=== PATIENT | male | born 1950 | race Caucasian/White ===

== ENCOUNTER 2020-03-18 12:17 | Day surgery (SDC) | payer MEDICARE ==
[2020-03-18 12:59] VITALS: RESP 16; TEMP 98.2
[2020-03-18 13:04] LABS: Mean Platelet Volume 7.9; Platelet Count 139 k/uL (150-450)
[2020-03-18 13:11] LABS: African American GFR (CKD) >90 (>60 ml/min/1.73 sqM); Non-African American GFR(CKD) 90 (>60 ml/min/1.73 sqM)
[2020-03-18 13:20] LABS: INR 1.1 (<1.2); Prothrombin Time 11.4 sec (9.0-12.0)
[2020-03-18] MEDS: ALBUMIN HUMAN 25% 50 ML in EMPTY BAG 1 BAG IVPB SCH ×4 (13:22→14:17)
[2020-03-18 14:56] VITALS: BP 121/78; PULSE 82
--- NOTE | 2020-03-18 16:14 | US ---
EXAMINATION TYPE: US paracentesis abd w/image DATE OF EXAM: 03/18/2020 COMPARISON: NONE HISTORY: Ascites. PROCEDURE: Maximal barrier technique was utilized. The skin overlying a suitable pocket of fluid was localized with ultrasound and the overlying skin was prepped and draped. Ultrasound was utilized with sterile technique. Lidocaine was used for local anesthesia and a skin marlon made with a scalpel. Catheter was advanced under direct ultrasound guidance into a suitable pocket of fluid and approximately 8 liters of serous fluid were removed. Catheter was withdrawn and hemostasis achieved. There is no immediate complication; the patient is discharged in stable condition. IMPRESSION: STATUS POST ULTRASOUND GUIDED PARACENTESIS FOR PALLIATION OF ASCITES. THIS PROCEDURE WA S PERFORMED BY THE UNDERSIGNED.
[2020-03-18 20:13] LABS: Appearance,BF Clear; Color,BF Yellow; Nucleated Cells, Body Fluid 34 /uL; RBC, Body Fluid 84 /uL
[2020-03-18 20:15] LABS: Mononuclear WBC,Body Fluid 99 %; Polynuclear WBC,Body Fluid 1 %; Total Cells Counted,Body Fluid 100
== END 2020-03-18 14:57 | disposition home or self-care (01) ==
LOC: RADPROMAIN 12:17
PROVIDERS: ATTEND Internal Medicine Gastroenterology
DX: R18.8 Other ascites (principal)
CPT/HCPCS: 89050; 82565; 85049; 85610; 36415; 49083; P9047; 88108; 88305

== ENCOUNTER → 2020-04-04 | Outpatient (CLI) | payer MEDICARE ==
[2020-04-04 23:25] LABS: Basophils # (A) 0.02 X 10*3/uL (0.00-0.10); Basophils % (A) 0.5 %; Eosinophils # (A) 0.18 X 10*3/uL (0.04-0.35); Eosinophils % (A) 4.3 %; HCT 29.4 % (39.6-50.0); HGB 8.9 g/dL (13.0-17.0); Lymphocytes # (A) 0.48 X 10*3/uL (0.90-5.00); Lymphocytes % (A) 11.5 %; MCH 24.3 pg (27.0-32.0); MCHC 30.3 g/dL (32.0-37.0); MCV 80.3 fL (80.0-97.0); Mean Platelet Volume 11.9 fL (9.5-12.2); Monocytes # (A) 0.41 X 10*3/uL (0.20-1.00); Monocytes % (A) 9.8 %; Neutrophils # (A) 3.08 X 10*3/uL (1.80-7.70); Neutrophils % (A) 73.4 %; Platelet Count 146 X 10*3/uL (140-440); RBC 3.66 X 10*6/uL (4.40-5.60); RDW 16.8 % (11.5-14.5); WBC 4.19 X 10*3/uL (4.50-10.00)
[2020-04-05 00:43] LABS: INR 1.05 (0.90-1.11); Partial Thromboplastin Time 29.3 sec (23.5-31.0); Prothrombin Time 11.4 sec (9.9-11.9)
[2020-04-05 04:02] LABS: African American GFR (CKD) 89.2 (60.0-200.0); Anion Gap 9.5 mmol/L (4.00-12.00); Calcium 8.3 mg/dL (8.7-10.3); Carbon Dioxide 23.5 mmol/L (21.6-31.8); Magnesium 1.9 mg/dL (1.5-2.4)
== END | disposition home or self-care (01) ==
LOC: LABWHC1 16:17
DX: Z01.810 Encounter for preprocedural cardiovascular examination (principal)
CPT/HCPCS: 80048; 83735; 85025; 85610; 85730; 36415; U0003

== ENCOUNTER → 2020-05-09 | Outpatient (CLI) | payer MEDICARE ==
[2020-05-10 01:31] LABS: African American GFR (CKD) 106.4 (60.0-200.0); Anion Gap 7.8 mmol/L (4.00-12.00); BUN/Creat Ratio 22.5 Ratio (12.00-20.00); Calcium 8.7 mg/dL (8.7-10.3); Carbon Dioxide 24.2 mmol/L (21.6-31.8); Non-African American GFR(CKD) 91.8 (60.0-200.0); Potassium 3.6 mmol/L (3.5-5.5)
== END | disposition home or self-care (01) ==
LOC: LABWHC1 14:39
PROVIDERS: ATTEND Internal Medicine
DX: N17.9 Acute kidney failure, unspecified (principal); Z79.899 Other long term (current) drug therapy
CPT/HCPCS: 36415; 80048

== ENCOUNTER 2020-06-06 08:54 | Emergency (ER) | payer MEDICARE ==
[2020-06-06] MEDS ORDERED: MORPHINE SULFATE 4 MG/ML SYRINGE IV STA (09:19)
[2020-06-06 09:50] LABS: Anisocytosis Slight; Basophils % (A) 0 %; Eosinophils % (A) 1 %; HCT 30.1 % (39.0-53.0); Hypochromasia Moderate; Lymphocytes # (A) 0.3 k/uL (1.0-4.8); Lymphocytes % (A) 4 %; MCH 25.3 pg (25.0-35.0); MCHC 33.1 g/dL (31.0-37.0); MCV 76.6 fL (80.0-100.0); Mean Platelet Volume 7.8; Microcytosis Slight; Monocytes # (A) 0.5 k/uL (0-1.0); Monocytes % (A) 6 %; Neutrophils # (A) 7.5 k/uL (1.3-7.7); Neutrophils % (A) 89 %; Platelet Count 176 k/uL (150-450); Poikilocytosis Slight; RBC 3.93 m/uL (4.30-5.90); WBC 8.4 k/uL (3.8-10.6)
[2020-06-06 10:02] LABS: Albumin 2.7 g/dL (3.5-5.0); Calcium 7.9 mg/dL (8.4-10.2); Potassium 3.6 mmol/L (3.5-5.1); Total Bilirubin 2.8 mg/dL (0.2-1.3)
--- NOTE | 2020-06-06 11:26 | CT ---
EXAMINATION TYPE: CT abdomen pelvis w con DATE OF EXAM: 06/06/2020 COMPARISON: NONE HISTORY: 70-year-old male leaking hernia, abdominal pain, TECHNIQUE: Contiguous axial scanning of the abdomen and pelvis following administration of 100 ml Iso melchor 300 IV contrast. Delayed images through the kidneys and coronal/sagittal reconstructions perform ed. CT DLP: 1120.4 mGycm Automated exposure control for dose reduction was used. FINDINGS: Heart normal size without pericardial effusion. Bands of atelectasis at the posterior lower lobes and additional dependent atelectasis. Gastroesophageal and lower esophageal varices suggested. Shrunken nodular liver. Underlying lesion within the mid hepatic dome measuring 6.3 x 2.8 cm difficul t to exclude. Possible second lesion segment 4A measuring 1.8 cm. There is recanalization of the umbilical vein. Portal venous system appears patent. Very large abdominopelvic ascites. Mild splenomegaly of 14.0 cm. Posterior splenule. Gallbladder, left kidney, and pancreas show no gross adenopathy. 1.1 cm cortical hypodensity mid right kidney too small for accurate CT characterization, probable sma ll cortical cysts. Nonobstructive 2 mm right renal calculus, coronal image 79. Possible diffuse gastric fold thickening. No dilated small bowel or free air. There seems to be mild to moderate fold thickening of the right side of the colon, for example, refer to coronal image 59. P roximal to mid sigmoid diverticulosis. Mural-based irregularity at the level of the rectum, likely r ectal varices draining to a large IMV. Small 8 mm umbilical hernia defect but with moderate fluid collected in the subcutaneous adipose laye r measuring 8.3 cm wide and 8.1 cm craniocaudal. Bladder partially urine distended. Prostate gland measures 3.9 cm wide. Bones: Left hip dynamic screw fixation. Superior endplate compression deformities L1 and L2. These ar e age-indeterminate but suspected chronic and can be correlated clinically. Hypertrophic facet arthro santino mid to lower lumbar spine. Grade 1 anterolisthesis L4-L5. IVC filter. IMPRESSION: 1. CIRRHOTIC LIVER. UNABLE TO EXCLUDE UNDERLYING LESIONS AT THE MID HEPATIC DOME MEASURING 6.3 X 2.8 CM AND A SECOND LESION WITHIN SEGMENT 4A MEASURING 1.8 CM. HCC SHOULD BE EXCLUDED. 2. SEQUELA OF PORTAL VENOUS HYPERTENSION WITH RECANALIZED UMBILICAL VEIN, LOWER ESOPHAGEAL VARICES, S EVERE ABDOMINOPELVIC ASCITES, AND MILD SPLENOMEGALY. 3. PRONOUNCED MUCOSAL IRREGULARITY WITHIN THE RECTUM SUSPECTED TO BE ON THE BASIS OF RECTAL VARICES ( FROM PORTAL VENOUS HYPERTENSION) RATHER THAN NEOPLASM. 4. MODERATE CIRCUMFERENTIAL THICKENING OF THE RIGHT SIDE OF THE COLON COULD BE DUE TO HYPOALBUMINEMIA OR A NONSPECIFIC COLITIS. 5. SMALL 8 MM UMBILICAL WALL DEFECT WITH A MODERATE SIZED 8.3 X 8.1 CM HERNIA SAC CONTAINING ASCITES FLUID.
--- NOTE | 2020-06-06 11:36 | ED ---
Abdominal Pain HPI - General Chief Complaint: Abdominal Pain Stated Complaint: abd pain/hernia Source: EMS Mode of arrival: EMS Limitations: no limitations - History of Present Illness Initial Comments: 70-year-old male presents to the emergency department from home with leaking from his umbilical hernia. Patient has a history of end-stage liver disease, ascites with recent paracentesis on June 01. Patient reports that he receives these as needed. On the they did remove 8 L of fluid. Patient does have a chronic umbilical hernia. States that earlier today the site began leaking and therefore he came into the emergency room for evaluation. Patient also reports to abdominal pain. Denies any nausea, vomiting, fevers or chills. No shortness of breath. Denies any changes in his bowel habits. No changes in his urination. No other alleviating, Perceptin or modifying factors - Related Data Home Medications Medication Instructions Recorded Confirmed Ciprofloxacin HCl [Cipro] 500 mg PO DAILY 03/14/20 06/06/20 Furosemide [Lasix] 20 mg PO BID 03/14/20 06/06/20 Spironolactone [Aldactone] 25 mg PO DAILY 03/14/20 06/06/20 Magnesium(Unknown) 1 tab PO DAILY 06/06/20 06/06/20 Midodrine HCl [ProAmatine] 10 mg PO TID PRN 06/06/20 06/06/20 Propranolol [Inderal] 10 mg PO BID 06/06/20 06/06/20 Vitamin D3(Uknown) 1 tab PO DAILY 06/06/20 06/06/20 traZODone HCL 100 mg PO HS PRN 06/06/20 06/06/20 Allergies Allergy/AdvReac Type Severity Reaction Status Date / Time No Known Allergies Allergy Verified 06/06/20 12:26 Review of Systems ROS Statement: Those systems with pertinent positive or pertinent negative responses have been documented in the HPI. ROS Other: All systems not noted in ROS Statement are negative. Past Medical History Past Medical History: Coronary Artery Disease (CAD), Diabetes Mellitus, Hypertension, Liver Disease, Osteoarthritis (OA) Additional Past Medical History / Comment(s): irregular heart beat in past due to Popanolol-per pt, alcoholic cirrhosis History of Any Multi-Drug Resistant Organisms: None Reported Past Surgical History: Orthopedic Surgery, Tonsillectomy Additional Past Surgical History / Comment(s): multiple paracentesis Past Anesthesia/Blood Transfusion Reactions: No Reported Reaction Past Psychological History: Anxiety, Depression Smoking Status: Former smoker Past Alcohol Use History: None Reported Past Drug Use History: Marijuana - Past Family History Father Family Medical History: No Reported History General Exam Limitations: no limitations Course Vital Signs 06/06/20 06/06/20 06/06/20 08:57 12:24 13:50 Temperature 97.8 F 97.9 F 98.0 F Pulse Rate 98 96 99 Respiratory 16 18 18 Rate Blood Pressure 116/81 106/72 102/70 O2 Sat by Pulse 96 94 L 95 Oximetry Medical Decision Making - Medical Decision Making The patient's placed into room 17. There are history and physical exam is performed. IV is established patient is given 4 of morphine for pain control. Laboratory studies are conducted. Patient is provided a urine sample. CT of abdomen and pelvis was performed which demonstrates cirrhotic liver, sequelae of portal hypertension, severe ascites. Umbilical wall defect with moderate sized 8.3 x 8.1 similar hernia sac containing ascites fluid. There isn't shower over the patient's umbilical hernia. No active bleeding or drainage at this time. I did discuss the diagnosis, differential treatment options. Recommend admission for GI and surgery consultation. Patient refused and states he rather go home at this time. I will give him follow up information for Dr. Whelan's office as he does request that he wants to switch GI doctors. I also given follow-up information for Dr. Child's office. Adaptic placed over the patient's vocal hernia and the patient's abdomen is rapid with a Eder bandage. He is instructed to follow up with his GI doctor for paracentesis as needed. Return to the ED for any new or worsening symptoms. Pt agreed to this and was discharged home in stable condition - Lab Data Result diagrams: 06/06/20 09:21 06/06/20 09:21 Lab Results 06/06/20 06/06/20 06/06/20 Range/Units 09: 09:21 12:27 WBC 8.4 (3.8-10.6) k/uL RBC 3.93 L (4.30-5.90) m/uL Hgb 10.0 L (13.0-17.5) gm/dL Hct 30.1 L (39.0-53.0) % MCV 76.6 L (80.0-100.0) fL MCH 25.3 (25.0-35.0) pg MCHC 33.1 (31.0-37.0) g/dL RDW 18.0 H (11.5-15.5) % Plt Count 176 (150-450) k/uL MPV 7.8 Neutrophils % 89 % Lymphocytes % 4 % Monocytes % 6 % Eosinophils % 1 % Basophils % 0 % Neutrophils # 7.5 (1.3-7.7) k/uL Lymphocytes # 0.3 L (1.0-4.8) k/uL Monocytes # 0.5 (0-1.0) k/uL Eosinophils # 0.0 (0-0.7) k/uL Basophils # 0.0 (0-0.2) k/uL Hypochromasia Moderate Poikilocytosis Slight Anisocytosis Slight Microcytosis Slight Sodium 134 L (137-145) mmol/L Potassium 3.6 (3.5-5.1) mmol/L Chloride 97 L (98-107) mmol/L Carbon Dioxide 29 (22-30) mmol/L Anion Gap 8 mmol/L BUN 28 H (9-20) mg/dL Creatinine 1.12 (0.66-1.25) mg/dL Est GFR (CKD-EPI)AfAm 78 (>60 ml/min/1.73 sqM) Est GFR (CKD-EPI)NonAf 67 (>60 ml/min/1.73 sqM) Glucose 103 H (74-99) mg/dL Calcium 7.9 L (8.4-10.2) mg/dL Total Bilirubin 2.8 H (0.2-1.3) mg/dL AST 35 (17-59) U/L ALT 16 (4-49) U/L Alkaline Phosphatase 132 H (38-126) U/L Total Protein 6.0 L (6.3-8.2) g/dL Albumin 2.7 L (3.5-5.0) g/dL Lipase 68 (23-300) U/L Urine Color Yellow Urine Appearance Clear (Clear) Urine pH 5.5 (5.0-8.0) Ur Specific Newborn 1.040 H (1.001-1.035) Urine Protein Trace H (Negative) Urine Glucose (UA) Negative (Negative) Urine Ketones Negative (Negative) Urine Blood Negative (Negative) Urine Nitrite Negative (Negative) Urine Bilirubin Negative (Negative) Urine Urobilinogen <2.0 (<2.0) mg/dL Ur Leukocyte Esterase Negative (Negative) - EKG Data EKG Comments: EKG demonstrates sinus rhythm with PACs. Rate of 97. WY interval 154. QRS 86. QTC of 474. Low voltage. No acute ST segment elevations. Disposition Clinical Impression: Ascites, Umbilical hernia Disposition: HOME SELF-CARE Condition: Stable Instructions (If sedation given, give patient instructions): Umbilical Hernia (ED) Additional Instructions: Please follow up with the GI doctor for paracentesis. Follow up with the surgeon for further options regarding your hernia. Return to the ED for any new or worsening symptoms. Keep a non stick bandage on your belly button and wrap your abdomen with the eder bandage to keep pressure off the hernia. Is patient prescribed a controlled substance at d/c from ED?: No Referrals: Nonstaff,Physician [Primary Care Provider] - 1-2 days Vero Canales MD [STAFF PHYSICIAN] - 1-2 days Dawson Lutz MD [STAFF PHYSICIAN] - 1-2 days Time of Disposition: 13:10
[2020-06-06] MEDS ORDERED: MORPHINE SULFATE 4 MG/ML SYRINGE IVP STA (12:17)
[2020-06-06 12:26] VITALS: RESP 18
[2020-06-06 12:58] LABS: Appearance,Urine Clear (Clear); Bilirubin,Urine Negative (Negative); Blood,Urine Negative (Negative); Color,Urine Yellow; Glucose,Urine (UA) Negative (Negative); Ketones,Urine Negative (Negative); Leukocyte Esterase,Urine Negative (Negative); Nitrite,Urine Negative (Negative); PH, Urine 5.5 (5.0-8.0); Protein,Urine Trace (Negative); Urobilinogen,Urine <2.0 mg/dL (<2.0)
[2020-06-06 13:53] VITALS: BP 102/70; PULSE 99; TEMP 98
== END 2020-06-06 13:52 | disposition home or self-care (01) ==
LOC: EC 08:54
DX: K42.9 Umbilical hernia without obstruction or gangrene (principal); R18.8 Other ascites; I25.10 Atherosclerotic heart disease of native coronary artery without angina pectoris; I10 Essential (primary) hypertension; E11.9 Type 2 diabetes mellitus without complications; F41.9 Anxiety disorder, unspecified; F32.9 Major depressive disorder, single episode, unspecified; Z79.899 Other long term (current) drug therapy; Z87.891 Personal history of nicotine dependence
CPT/HCPCS: 36415; 93005; 80053; 83690; 85025; 81003; 74177; 99285; 96374; 96376; J2270; Q9967

== ENCOUNTER 2021-07-02 14:22 | Inpatient (IN) | payer MEDICARE ==
[2021-07-02] MEDS ORDERED: ONDANSETRON 4 MG/2 ML VIAL IVP STA (15:36)
[2021-07-02] MEDS ORDERED: MORPHINE SULFATE 4 MG/ML SYRINGE IV STA (15:36)
[2021-07-02] MEDS ORDERED: SODIUM CHLORIDE 0.9% 500 ML 500 ML IV STA ×2 (15:37→17:08)
[2021-07-02] MEDS ORDERED: diphenhydrAMINE 50 MG/ML 1 ML VIAL IVP STA (15:51)
[2021-07-02 15:53] LABS: Basophils # (A) 0.1 k/uL (0-0.2); Basophils % (A) 1 %; Eosinophils # (A) 0.2 k/uL (0-0.7); Eosinophils % (A) 3 %; HCT 40.3 % (39.0-53.0); HGB 12.4 gm/dL (13.0-17.5); Lymphocytes # (A) 1.1 k/uL (1.0-4.8); Lymphocytes % (A) 21 %; MCH 26.9 pg (25.0-35.0); MCHC 30.6 g/dL (31.0-37.0); MCV 87.8 fL (80.0-100.0); Monocytes # (A) 0.4 k/uL (0-1.0); Monocytes % (A) 7 %; Neutrophils # (A) 3.5 k/uL (1.3-7.7); Neutrophils % (A) 66 %; Platelet Count 114 k/uL (150-450); RBC 4.59 m/uL (4.30-5.90); RDW 14.9 % (11.5-15.5); WBC 5.3 k/uL (3.8-10.6)
[2021-07-02 15:55] LABS: Appearance,Urine Clear (Clear); Bilirubin,Urine Negative (Negative); Blood,Urine Negative (Negative); Color,Urine Yellow; Glucose,Urine (UA) Negative (Negative); Ketones,Urine Negative (Negative); Leukocyte Esterase,Urine Negative (Negative); Nitrite,Urine Negative (Negative); PH, Urine 7.5 (5.0-8.0); Protein,Urine Negative (Negative); Specific Gravity,Urine 1.006 (1.001-1.035); Urobilinogen,Urine <2.0 mg/dL (<2.0)
[2021-07-02 16:04] LABS: INR 1.1 (<1.2); Partial Thromboplastin Time 26.1 sec (22.0-30.0); Prothrombin Time 12.2 sec (9.0-12.0)
[2021-07-02 16:07] LABS: ALT 15 U/L (4-49); AST 28 U/L (17-59); African American GFR (CKD) >90 (>60 ml/min/1.73 sqM); Albumin 3.7 g/dL (3.5-5.0); Alkaline Phosphatase 107 U/L (38-126); Amylase 129 U/L (30-110); Anion Gap 9 mmol/L; Blood Urea Nitrogen 8 mg/dL (9-20); Calcium 8.8 mg/dL (8.4-10.2); Carbon Dioxide 19 mmol/L (22-30); Chloride 109 mmol/L (98-107); Glucose 89 mg/dL (74-99); Lipase 126 U/L (23-300); Non-African American GFR(CKD) >90 (>60 ml/min/1.73 sqM); Potassium 3.6 mmol/L (3.5-5.1); Sodium 137 mmol/L (137-145); Total Bilirubin 2.3 mg/dL (0.2-1.3); Total Protein 7.2 g/dL (6.3-8.2)
--- NOTE | 2021-07-02 16:18 | ED ---
General Adult HPI - General Chief complaint: Abdominal Pain Stated complaint: Abd Pain Time Seen by Provider: 07/02/21 15:02 Source: patient Mode of arrival: wheelchair Limitations: no limitations - History of Present Illness Initial comments: This 71-year-old male with past medical history of liver cirrhosis, coronary artery disease and hypertension presents emergency department with abdominal pain. Patient states he was seen at [facility] emergency department yesterday and was diagnosed with a small bowel obstruction. Patient states they wanted to tr ansfer him, however he declined and went home instead. He describes his abdominal pain as aching and is all over in his abdomen- not localized to one specific spot. Patient states his abdominal pain has been worsening over the last week. Patient states his last bowel movement was yesterday which seemed to be regular for him. Patient states they performed a CT scan of the abdomen yesterday and diagnosed with small bowel obstruction. Patient denies any fever, chest pain, increased shortness of breath, nausea, vomiting, change in bowel or bladder, lightheadedness, dizziness, headache, change in vision. Patient states appetite has been a little bit decreased over the last couple of days. - Related Data Home Medications Medication Instructions Recorded Confirmed traZODone HCL 100 mg PO HS PRN 06/06/20 07/02/21 Allergies Allergy/AdvReac Type Severity Reaction Status Date / Time No Known Allergies Allergy Verified 07/02/21 17:03 Review of Systems ROS Statement: Those systems with pertinent positive or pertinent negative responses have been documented in the HPI. ROS Other: All systems not noted in ROS Statement are negative. Past Medical History Past Medical History: Coronary Artery Disease (CAD), Diabetes Mellitus, Hypertension, Liver Disease, Osteoarthritis (OA) Additional Past Medical History / Comment(s): irregular heart beat in past due to Popanolol-per pt, alcoholic cirrhosis History of Any Multi-Drug Resistant Organisms: None Reported Past Surgical History: Orthopedic Surgery, Tonsillectomy Additional Past Surgical History / Comment(s): multiple paracentesis Past Anesthesia/Blood Transfusion Reactions: No Reported Reaction Past Psychological History: Anxiety, Depression Smoking Status: Former smoker Past Alcohol Use History: None Reported Past Drug Use History: Marijuana - Past Family History Father Family Medical History: No Reported History General Exam Limitations: no limitations General appearance: alert, in no apparent distress Head exam: Present: atraumatic, normocephalic, normal inspection Eye exam: Present: normal appearance, PERRL, EOMI. Absent: scleral icterus, conjunctival injection, periorbital swelling ENT exam: Present: normal exam, mucous membranes moist Neck exam: Present: normal inspection. Absent: tenderness, meningismus, lymphadenopathy Respiratory exam: Present: normal lung sounds bilaterally, other (Respirations 21- patient states this is how he normally breathes). Absent: respiratory distress, wheezes, rales, rhonchi, stridor, chest wall tenderness, decreased breath sounds Cardiovascular Exam: Present: regular rate, irregular rhythm (rate jumping from 75-140's), normal heart sounds. Absent: systolic murmur, diastolic murmur, rubs, gallop, clicks GI/Abdominal exam: Present: soft, tenderness (Generalized abdominal discomfort to palpation in all 4 quadrants), normal bowel sounds. Absent: distended, guarding, rebound, rigid Extremities exam: Present: normal inspection, full ROM, normal capillary refill. Absent: tenderness, pedal edema, joint swelling, calf tenderness Back exam: Present: normal inspection, full ROM. Absent: CVA tenderness (R), CVA tenderness (L), paraspinal tenderness, vertebral tenderness Neurological exam: Present: alert, oriented X3, CN II-XII intact Psychiatric exam: Present: normal affect, normal mood Skin exam: Present: warm, dry, intact, normal color. Absent: rash Course Vital Signs 07/02/21 07/02/21 07/02/21 14:39 15:33 17:03 Temperature 98 F Pulse Rate 75 67 112 H Respiratory 24 18 18 Rate Blood Pressure 114/60 112/85 125/91 O2 Sat by Pulse 99 100 99 Oximetry 07/02/21 17:48 Temperature Pulse Rate 129 H Respiratory 18 Rate Blood Pressure 108/93 O2 Sat by Pulse 95 Oximetry EKG Findings - EKG Comments: EKG Findings:: EKG impression: Abnormal rhythm. Ventricular rate 99 bpm. QRS duration 86. QT/QTc 346/402. Interpreted by my attending, Medical Decision Making - Medical Decision Making This 71-year-old male presents emergency department with abdominal pain 1 week. Patient was seen at [facility] emergency department yesterday and was diagnosed with small bowel obstruction or they wanted to transfer him, however he did refuse. I did receive CT scan of abdomen results which did interpret small bowel obstruction. Patient states his abdominal pain has been increasing today so he presented here. Patient with 2.8 plasma lactic acid. Patient given 1 L normal saline bolus and was placed nothing by mouth and started on maintenance fluids. Spoke with who agreed to admit patient to her services with GI consul marysol. Patient placed on metoprolol 25 mg twice a day for abnormal heart rhythm- patient states he believes he may have been diagnosed with A. fib in his past but is unsure. Patient agreed to be admitted to the hospital for further workup, evaluation and treatment. Case discussed in detail with my attending, . - Lab Data Result diagrams: 07/02/21 15:49 07/02/21 15:49 Lab Results 07/02/21 07/02/21 07/02/21 Range/Units 15:40 15:40 15:40 WBC (3.8-10.6) k/uL RBC (4.30-5.90) m/uL Hgb (13.0-17.5) gm/dL Hct (39.0-53.0) % MCV (80.0-100.0) fL MCH (25.0-35.0) pg MCHC (31.0-37.0) g/dL RDW (11.5-15.5) % Plt Count (150-450) k/uL MPV Neutrophils % % Lymphocytes % % Monocytes % % Eosinophils % % Basophils % % Neutrophils # (1.3-7.7) k/uL Lymphocytes # (1.0-4.8) k/uL Monocytes # (0-1.0) k/uL Eosinophils # (0-0.7) k/uL Basophils # (0-0.2) k/uL PT 12.2 H (9.0-12.0) sec INR 1.1 (<1.2) APTT 26.1 (22.0-30.0) sec Sodium (137-145) mmol/L Potassium (3.5-5.1) mmol/L Chloride (98-107) mmol/L Carbon Dioxide (22-30) mmol/L Anion Gap mmol/L BUN (9-20) mg/dL Creatinine (0.66-1.25) mg/dL Est GFR (CKD-EPI)AfAm (>60 ml/min/1.73 sqM) Est GFR (CKD-EPI)NonAf (>60 ml/min/1.73 sqM) Glucose (74-99) mg/dL Plasma Lactic Acid Dirk 2.8 H* (0.7-2.0) mmol/L Calcium (8.4-10.2) mg/dL Total Bilirubin (0.2-1.3) mg/dL AST (17-59) U/L ALT (4-49) U/L Alkaline Phosphatase (38-126) U/L Troponin I (0.000-0.034) ng/mL Total Protein (6.3-8.2) g/dL Albumin (3.5-5.0) g/dL Amylase (30-110) U/L Lipase (23-300) U/L Urine Color Yellow Urine Appearance Clear (Clear) Urine pH 7.5 (5.0-8.0) Ur Specific [place] 1.006 (1.001-1.035) Urine Protein Negative (Negative) Urine Glucose (UA) Negative (Negative) Urine Ketones Negative (Negative) Urine Blood Negative (Negative) Urine Nitrite Negative (Negative) Urine Bilirubin Negative (Negative) Urine Urobilinogen <2.0 (<2.0) mg/dL Ur Leukocyte Esterase Negative (Negative) 07/02/21 07/02/21 07/02/21 Range/Units 15:49 15:49 16:10 WBC 5.3 (3.8-10.6) k/uL RBC 4.59 (4.30-5.90) m/uL Hgb 12.4 L (13.0-17.5) gm/dL Hct 40.3 (39.0-53.0) % MCV 87.8 (80.0-100.0) fL MCH 26.9 (25.0-35.0) pg MCHC 30.6 L (31.0-37.0) g/dL RDW 14.9 (11.5-15.5) % Plt Count 114 L (150-450) k/uL MPV 8.0 Neutrophils % 66 % Lymphocytes % 21 % Monocytes % 7 % Eosinophils % 3 % Basophils % 1 % Neutrophils # 3.5 (1.3-7.7) k/uL Lymphocytes # 1.1 (1.0-4.8) k/uL Monocytes # 0.4 (0-1.0) k/uL Eosinophils # 0.2 (0-0.7) k/uL Basophils # 0.1 (0-0.2) k/uL PT (9.0-12.0) sec INR (<1.2) APTT (22.0-30.0) sec Sodium 137 (137-145) mmol/L Potassium 3.6 (3.5-5.1) mmol/L Chloride 109 H (98-107) mmol/L Carbon Dioxide 19 L (22-30) mmol/L Anion Gap 9 mmol/L BUN 8 L (9-20) mg/dL Creatinine 0.68 (0.66-1.25) mg/dL Est GFR (CKD-EPI)AfAm >90 (>60 ml/min/1.73 sqM) Est GFR (CKD-EPI)NonAf >90 (>60 ml/min/1.73 sqM) Glucose 89 (74-99) mg/dL Plasma Lactic Acid Dirk (0.7-2.0) mmol/L Calcium 8.8 (8.4-10.2) mg/dL Total Bilirubin 2.3 H (0.2-1.3) mg/dL AST 28 (17-59) U/L ALT 15 (4-49) U/L Alkaline Phosphatase 107 (38-126) U/L Troponin I 0.012 (0.000-0.034) ng/mL Total Protein 7.2 (6.3-8.2) g/dL Albumin 3.7 (3.5-5.0) g/dL Amylase 129 H (30-110) U/L Lipase 126 (23-300) U/L Urine Color Urine Appearance (Clear) Urine pH (5.0-8.0) Ur Specific [place] (1.001-1.035) Urine Protein (Negative) Urine Glucose (UA) (Negative) Urine Ketones (Negative) Urine Blood (Negative) Urine Nitrite (Negative) Urine Bilirubin (Negative) Urine Urobilinogen (<2.0) mg/dL Ur Leukocyte Esterase (Negative) Disposition Clinical Impression: Small bowel obstruction, Abdominal pain Disposition: ADMITTED IP TO THIS [facility] Condition: Serious Time of Disposition: 17:21
--- NOTE | 2021-07-02 16:38 | XR ---
EXAMINATION TYPE: XR abdomen 2V DATE OF EXAM: 07/02/2021 COMPARISON: NONE HISTORY: Abdominal pain TECHNIQUE: 3 views FINDINGS: There is no sign of intestinal obstruction or pneumoperitoneum. Fecal pattern is normal. Th ere is inferior vena cava filter. There is left hip nailing. IMPRESSION: Nonacute abdomen.
[2021-07-02] MEDS ORDERED: ONDANSETRON 4 MG/2 ML VIAL IVP PRN (17:03)
[2021-07-02] MEDS ORDERED: NALOXONE 0.4 MG/ML 1 ML VIAL IV PRN (17:03)
[2021-07-02] MEDS ORDERED: METOPROLOL SUCCINATE (ER) 25 MG TAB.ER.24H PO STA (17:08)
[2021-07-02] MEDS ORDERED: DILTIAZEM 5 MG/ML 5 ML VIAL IVP STA (17:36)
[2021-07-02] MEDS: MORPHINE SULFATE 4 MG/ML SYRINGE IV PRN ×3 (17:37→21:15)
[2021-07-02] MEDS ORDERED: traZODone HCL 100 MG TAB PO PRN (17:37)
[2021-07-02] MEDS: SODIUM CHLORIDE 0.9% 1,000 ML IV SCH (17:41)
[2021-07-02] MEDS ORDERED: DILTIAZEM 125 MG in SODIUM CHLORIDE 0.9% 100 ML IV SCH (17:45)
--- NOTE | 2021-07-02 18:13 | XR ---
EXAMINATION TYPE: XR chest 1V portable DATE OF EXAM: 07/02/2021 COMPARISON: NONE HISTORY: Short of breath TECHNIQUE: Single view FINDINGS: Heart is normal. Lungs are clear of infiltrate. No heart failure seen. There is deformity o f the left humerus consistent with old healed humeral neck fracture. IMPRESSION: No active cardiopulmonary disease.
--- NOTE | 2021-07-02 18:45 | HP ---
HISTORY AND PHYSICAL CHIEF COMPLAINT: Abdominal pain. HISTORY OF PRESENT ILLNESS: This 71-year-old gentleman with a past mellitus history of cirrhosis of the liver and TIPS in the outpatient setting, being followed at [facility] physicians, apparently had abdominal pain for the last one week which was increasing in intensity for the last two days, mainly felt in the upper part and right upper quadrant. Patient went to [facility] ER yesterday and CT scans apparently showed small bowel obstruction. Because of lack of improvement, the patient came to [facility] and was admitted for further evaluation and treatment. There is no history of any fever, rigors or chills at this time. The patient also had atrial fibrillation with fast ventricular rate. PAST MEDICAL HISTORY: History of cirrhosis of the liver, history of TIPS, umbilical hernia repair, history of diabetes mellitus, CAD, hypertension. MEDICATIONS: Home medications are trazodone. ALLERGIES: NONE. FAMILY HISTORY: No history of heart disease or strokes in the family. SOCIAL HISTORY: Previous history of alcohol. Previous history of smoking. REVIEW OF SYSTEMS: Fourteen-point review of systems negative except as mentioned earlier. PHYSICAL EXAMINATION: Pulse is 112, blood pressure 124/90, respiration 18. Oral mucosa moist. NECK: No jugular venous distention. CARDIOVASCULAR: S1, S2 muffled. RESPIRATION: Breath sounds diminished at the bases. No rhonchi. No crackles. ABDOMEN: Soft. Mild diffuse tenderness in the right upper quadrant. No mass palpable. LEGS: No edema. No swelling. NERVOUS SYSTEM: No focal deficit. LABS: WBC 5.3, hemoglobin 12.4. Rest of the labs are noted. ASSESSMENT: 1. Right upper quadrant abdominal pain. Rule out cholelithiasis or cholecystitis. 2. Elevated plasma lactic acid. 3. Cirrhosis of the liver and TIPS. 4. History of diabetes mellitus, type 2. 5. Possible small bowel obstruction on the recent CT scan. 6. Coronary artery disease. 7. Hypertension. 8. Atrial fibrillation. RECOMMENDATIONS AND DISCUSSION: In this 71-year-old gentleman who presented with multiple complex medical issues, we will monitor the patient closely. Otherwise, I would recommend Cardizem drip, surgical and cardiology consultations. Guarded prognosis because of multiple complex medical issues. Further recommendations to follow. See orders for details. MMODL / IJN: [id number] /
[2021-07-02] MEDS ORDERED: METOPROLOL SUCCINATE (ER) 25 MG TAB.ER.24H PO SCH (21:00)
[2021-07-02] MEDS: PANTOPRAZOLE 40 MG/10 ML VIAL IVP SCH (21:15)
[2021-07-02] MEDS: HEPARIN SODIUM,PORCINE/PF 5,000 UNIT/0.5 ML SYRINGE SQ SCH (21:15)
[2021-07-03] MEDS: MORPHINE SULFATE 4 MG/ML SYRINGE IV PRN ×2 (01:59→06:23)
[2021-07-03] MEDS: SODIUM CHLORIDE 0.9% 1,000 ML IV SCH (02:02)
[2021-07-03] MEDS ORDERED: METOPROLOL SUCCINATE (ER) 25 MG TAB.ER.24H PO SCH (06:00)
[2021-07-03 07:12] LABS: African American GFR (CKD) >90 (>60 ml/min/1.73 sqM); Anion Gap 5 mmol/L; Blood Urea Nitrogen 10 mg/dL (9-20); Carbon Dioxide 20 mmol/L (22-30); Chloride 114 mmol/L (98-107); Glucose 71 mg/dL (74-99); Non-African American GFR(CKD) >90 (>60 ml/min/1.73 sqM); Sodium 139 mmol/L (137-145)
[2021-07-03 07:18] LABS: Potassium 4.2 mmol/L (3.5-5.1)
[2021-07-03 07:19] LABS: Basophils % (A) 1 %; Eosinophils # (A) 0.1 k/uL (0-0.7); Eosinophils % (A) 3 %; HCT 35.7 % (39.0-53.0); HGB 11.1 gm/dL (13.0-17.5); Hypochromasia Moderate; Lymphocytes # (A) 0.9 k/uL (1.0-4.8); Lymphocytes % (A) 22 %; MCV 90.5 fL (80.0-100.0); Mean Platelet Volume 7.9; Monocytes # (A) 0.3 k/uL (0-1.0); Monocytes % (A) 7 %; Neutrophils # (A) 2.5 k/uL (1.3-7.7); Neutrophils % (A) 62 %; Platelet Count 108 k/uL (150-450); RBC 3.95 m/uL (4.30-5.90)
--- NOTE | 2021-07-03 08:24 | P.CRDCN ---
History of Present Illness History of present illness: HISTORY OF PRESENTING ILLNESS This is a pleasant 71-year-old male past medical history significant for liver cirrhosis s/p prior TIPS, Hernia, Prior alcohol use. He does not follow regularly with a mechanical product design engineer. We have been asked to see in consultation for atrial fibrillation. Patient presents emergency department the patient worsening abdominal pain. Patient initially presented to the outside emergency department and was diagnosed with small bowel obstruction, as recommended patient be transferred however he declined and went home. He presents with worsening aching upper and lower abdominal pain. He continues to have abdominal pain but relief with morphine. He endorses last 3 bowel movements on 07/01. Not passing flatus currently. He denies chest pain, palpitations, lightheadedness, dizziness, shortness of breath. He denies any nausea or vomiting. He denies any history of coronary artery disease, hypertension, diabetes, dyslipidemia. He currently smokes one cigarette per week. Denies any alcohol use. Stopped alcohol use 3 years ago. Patient was known to be and possible atrial fibrillation was started on Cardizem 5mg/hr, stopped about 3-4 hours later patient was in sinus mechanism. DIAGNOSTICS EKG reveals atrial fibrillation, ectopic atrial rhythm not excluded with heart rate [address] history of abnormalities. Telemetry tracings indicate sinus mechanism with heart rate 60s Chest xray no acute cardiopulmonary process KUB x-ray with no acute abdominal process Laboratory reviewed, WBC 4.0, hemoglobin 11.1, platelets 108, sodium 139, potassium 4.2, BUN 10, serum crit 0.6, troponin negative, liver enzymes within normal limits, amylase 129, lipase 126 Current home medications include trazodone 100 mg PRN REVIEW OF SYSTEMS At the time of my exam: CONSTITUTIONAL: Denies fever or chills. CARDIOVASCULAR: Denies chest pain, shortness of breath, orthopnea, PND or palpitations. RESPIRATORY: Denies cough. GASTROINTESTINAL: + abdominal pain, Iron diarrhea, constipation, nausea or vomiting. MUSCULOSKELETAL: Denies myalgias. NEUROLOGIC: Denies numbness, tingling, headacbe or weakness. ENDOCRINE: Denies fatigue, weight change, polydipsia or polyurina. GENITOURINARY: Denies burning, hematuria or urgency with micturation. HEMATOLOGIC: Denies history of anemia or bleeding. PHYSICAL EXAMINATION Blood pressure 116/71, heart rate 67, afebrile, oxygen saturations 98% on room air CONSTITUTIONAL: No apparent distress. HEENT: Head is normocephalic. Pupils are equal, round. Sclerae anicteric. Mucous membranes of the mouth are moist. No JVD. No carotid bruit. CHEST EXAMINATION: Lungs are clear to auscultation. No chest wall tenderness is noted on palpation or with deep breathing. HEART EXAMINATION: Regular rate and rhythm. S1, S2 heard. No murmurs, gallops or rub. ABDOMEN: Soft, nontender. Positive bowel sounds. EXTREMITIES: 2+ peripheral pulses, no lower extremity edema and no calf tenderness. NEUROLOGIC EXAMINATION: Patient is awake, alert and oriented x3. ASSESSMENT Abdominal pain Possible small bowel obstruction Paroxysmal atrial fibrillation [id number] score 1 History liver cirrhosis status post prior TIPS History of alcohol use Chronic nicotine dependence PLAN Obtain 2D echocardiogram and doppler study to assess cardiac structure and function. Continue metoprolol succinate Check TSH Hold off on anticoagulation at this time, will touch base with urology Further recommendations based on clinical course Nurse practitioner note has been reviewed by physician. Signing provider agrees with the documented findings, assessment, and plan of care. Past Medical History Past Medical History: Coronary Artery Disease (CAD), Hypertension, Liver Disease, Osteoarthritis (OA) Additional Past Medical History / Comment(s): irregular heart beat in past due to Popanolol-per pt, alcoholic cirrhosis History of Any Multi-Drug Resistant Organisms: None Reported Past Surgical History: Orthopedic Surgery, Tonsillectomy Additional Past Surgical History / Comment(s): multiple paracentesis,left hip fractures repair, right 2 and 3 digit repair Past Anesthesia/Blood Transfusion Reactions: No Reported Reaction Smoking Status: Former smoker - Past Family History Father Family Medical History: No Reported History Sister(s) Family Medical History: Diabetes Mellitus Brother(s) Family Medical History: CVA/TIA, Diabetes Mellitus Medications and Allergies Home Medications Medication Instructions Recorded Confirmed Type traZODone HCL 100 mg PO HS PRN 06/06/20 07/02/21 History Allergies Allergy/AdvReac Type Severity Reaction Status Date / Time No Known Allergies Allergy Verified 07/02/21 17:03 Physical Exam Vitals: Vital Signs Temp Pulse Pulse Resp BP BP Pulse Ox 07/03/21 02:00 66 17 07/03/21 00:00 97.9 F 66 17 115/70 96 07/02/21 20:00 98.3 F 65 18 113/49 100 07/02/21 19:12 98.3 F 93 18 109/62 100 07/02/21 18:26 89 18 108/84 96 07/02/21 17:48 129 H 18 108/93 95 07/02/21 17:03 112 H 18 125/91 99 07/02/21 15:33 67 18 112/85 100 07/02/21 14:39 98 F 75 24 114/60 99 Intake and Output 07/02/21 07/02/21 07/03/21 14:59 22:59 06:59 Intake Total 20.583 Output Total 500 Balance 20.583 -500 Intake: Intake, IV Titration 20.583 Amount Diltiazem 125 mg In 20.583 Sodium Chloride 0.9% 100 ml @ 5 MG/HR 5 mls/hr IV .Q24H [facility] Rx#:[id number] Output: Urine 500 Other: Voiding Method Urinal Urinal Weight 58.967 kg 58.967 kg Results 07/03/21 06:47 07/03/21 06:47 Cardiac Enzymes 07/02/21 07/02/21 Range/Units 15:49 16:10 AST 28 (17-59) U/L Troponin I 0.012 (0.000-0.034) ng/mL Coagulation 07/02/21 Range/Units 15:40 PT 12.2 H (9.0-12.0) sec APTT 26.1 (22.0-30.0) sec CBC 07/02/21 Range/Units 15:49 WBC 5.3 (3.8-10.6) k/uL RBC 4.59 (4.30-5.90) m/uL Hgb 12.4 L (13.0-17.5) gm/dL Hct 40.3 (39.0-53.0) % Plt Count 114 L (150-450) k/uL Comprehensive Metabolic Panel 07/02/21 Range/Units 15:49 Sodium 137 (137-145) mmol/L Potassium 3.6 (3.5-5.1) mmol/L Chloride 109 H (98-107) mmol/L Carbon Dioxide 19 L (22-30) mmol/L BUN 8 L (9-20) mg/dL Creatinine 0.68 (0.66-1.25) mg/dL Glucose 89 (74-99) mg/dL Calcium 8.8 (8.4-10.2) mg/dL AST 28 (17-59) U/L ALT 15 (4-49) U/L Alkaline Phosphatase 107 (38-126) U/L Total Protein 7.2 (6.3-8.2) g/dL Albumin 3.7 (3.5-5.0) g/dL Current Medications Generic Name Dose Route Start Last Admin Trade Name Freq PRN Reason Stop Dose Admin Heparin Sodium (Porcine) 5,000 unit 07/02/21 21:00 07/02/21 21:15 Heparin Sodium,Porcine/Pf 5,000 Unit/0.5 Ml Syringe SQ 5,000 unit Q12HR JUDITH Administration Sodium Chloride 1,000 mls @ 130 mls/hr 07/02/21 17:15 07/03/21 02:02 Saline 0.9% IV Not Given .[id number] JUDITH Diltiazem HCl 125 mg/ Sodium 125 mls @ 5 mls/hr 07/02/21 17:45 07/02/21 22:00 Chloride IV 0 mg/hr .Q24H JUDITH 0 mls/hr Infusion 5 MG/HR Metoprolol Succinate 25 mg 07/03/21 06:00 07/03/21 06:23 Metoprolol Succinate (Er) 25 Mg Tab.Er.24h PO 25 mg 0600,1800 JUDITH Administration Morphine Sulfate 4 mg 07/02/21 17:03 07/03/21 06:23 Morphine Sulfate 4 Mg/Ml Syringe IV 4 mg Q4HR PRN Administration Severe Pain Naloxone HCl 0.2 mg 07/02/21 17:03 Naloxone 0.4 Mg/Ml 1 Ml Vial IV Q2M PRN Opioid Reversal Ondansetron HCl 4 mg 07/02/21 17:03 Ondansetron 4 Mg/2 Ml Vial IVP Q8HR PRN Nausea And Vomiting Pantoprazole Sodium 40 mg 07/02/21 21:00 07/02/21 21:15 Pantoprazole 40 Mg/10 Ml Vial IVP 40 mg BID JUDITH Administration Trazodone HCl 100 mg 07/02/21 17:37 Trazodone Hcl 100 Mg Tab PO HS PRN Insomnia Intake and Output 07/02/21 07/02/21 07/03/21 14:59 22:59 06:59 Intake Total 20.583 Output Total 500 Balance 20.583 -500 Intake: Intake, IV Titration 20.583 Amount Diltiazem 125 mg In 20.583 Sodium Chloride 0.9% 100 ml @ 5 MG/HR 5 mls/hr IV .Q24H [facility] Rx#:[id number] Output: Urine 500 Other: Voiding Method Urinal Urinal Weight 58.967 kg 58.967 kg Patient Weight 07/03/21 06:59 Weight 58.967 kg 07/02/21 15:49 07/02/21 15:49
[2021-07-03 09:40] VITALS: TEMP 98.2
[2021-07-03] MEDS: PANTOPRAZOLE 40 MG/10 ML VIAL IVP SCH (10:01)
--- NOTE | 2021-07-03 10:28 | P.GSCN ---
History of Present Illness Consult date: 07/03/21 History of present illness: The patient is a 71-year-old man who presented to the ER with abdominal pain. He's been having abdominal pain for about the last week. Saturday he went to the ER, [facility] in [place] and was worked up with a CT. They were concerned about a possible small bowel obstruction wanted to transfer him however he declined and went home. By that time he was feeling better. He had several bowel movements on Saturday. Then he began having pain again which was stabbing in the right lower quadrant and he came into the emergency department and a x-ray was done he was admitted. Pain is improved with morphine. He has some nausea with the pain but no vomiting. No abdominal distention. Patient is hungry now and wants something to eat. Patient has known cirrhosis and underwent an umbilical hernia repair with TIPS procedure. A CT performed here in 2020 showed an umbilical hernia with extensive varices so the hernia repair had to have been performed after that. He's also complained of generalized itching in his primary care started him on some sort of topical cream. Other than the hernia repair he said no previous abdominal surgeries. No history of obstruction in the past Review of Systems All systems: negative Past Medical History Past Medical History: Coronary Artery Disease (CAD), Hypertension, Liver Disease, Osteoarthritis (OA) Additional Past Medical History / Comment(s): irregular heart beat in past due to Popanolol-per pt, alcoholic cirrhosis History of Any Multi-Drug Resistant Organisms: None Reported Past Surgical History: Orthopedic Surgery, Tonsillectomy Additional Past Surgical History / Comment(s): multiple paracentesis,left hip fractures repair, right 2 and 3 digit repair Past Anesthesia/Blood Transfusion Reactions: No Reported Reaction Smoking Status: Former smoker - Past Family History Father Family Medical History: No Reported History Sister(s) Family Medical History: Diabetes Mellitus Brother(s) Family Medical History: CVA/TIA, Diabetes Mellitus Medications and Allergies Home Medications Medication Instructions Recorded Confirmed Type traZODone HCL 100 mg PO HS PRN 06/06/20 07/02/21 History Allergies Allergy/AdvReac Type Severity Reaction Status Date / Time No Known Allergies Allergy Verified 07/02/21 17:03 Surgical - Exam Osteopathic Statement: *. No significant issues noted on an osteopathic structural exam other than those noted in the History and Physical/Consult. Vital Signs Temp Pulse Resp BP Pulse Ox 98 F 75 24 114/60 99 07/02/21 14:39 07/02/21 14:39 07/02/21 14:39 07/02/21 14:39 07/02/21 14:39 - General well developed, well nourished, no distress - Eyes normal ocular movement - Neck trachea midline, no lymphadectomy - Respiratory normal expansion, normal respiratory effort - Cardiovascular Rhythm: irregularly irregular - Abdomen Abdomen: soft, non tender, bowel sounds, surgical scars (Scarring in the area of the umbilicus without evidence of obvious caput medusa) - Integumentary no abnormal pigmentation Results - Labs 07/03/21 06:47 07/03/21 06:47 Abnormal Lab Results - Last 24 Hours (Table) 07/02/21 07/02/21 07/02/21 Range/Units 15:40 15:40 15:49 RBC (4.30-5.90) m/uL Hgb 12.4 L (13.0-17.5) gm/dL Hct (39.0-53.0) % MCHC 30.6 L (31.0-37.0) g/dL Plt Count 114 L (150-450) k/uL Lymphocytes # (1.0-4.8) k/uL PT 12.2 H (9.0-12.0) sec Chloride (98-107) mmol/L Carbon Dioxide (22-30) mmol/L BUN (9-20) mg/dL Glucose (74-99) mg/dL Plasma Lactic Acid Dirk 2.8 H* (0.7-2.0) mmol/L Calcium (8.4-10.2) mg/dL Total Bilirubin (0.2-1.3) mg/dL Amylase (30-110) U/L TSH (0.465-4.680) mIU/L 07/02/21 07/03/21 07/03/21 Range/Units 15:49 06:47 06:47 RBC 3.95 L (4.30-5.90) m/uL Hgb 11.1 L (13.0-17.5) gm/dL Hct 35.7 L (39.0-53.0) % MCHC (31.0-37.0) g/dL Plt Count 108 L (150-450) k/uL Lymphocytes # 0.9 L (1.0-4.8) k/uL PT (9.0-12.0) sec Chloride 109 H 114 H (98-107) mmol/L Carbon Dioxide 19 L 20 L (22-30) mmol/L BUN 8 L (9-20) mg/dL Glucose 71 L (74-99) mg/dL Plasma Lactic Acid Dirk (0.7-2.0) mmol/L Calcium 8.0 L (8.4-10.2) mg/dL Total Bilirubin 2.3 H (0.2-1.3) mg/dL Amylase 129 H (30-110) U/L TSH (0.465-4.680) mIU/L 07/03/21 Range/Units 06:47 RBC (4.30-5.90) m/uL Hgb (13.0-17.5) gm/dL Hct (39.0-53.0) % MCHC (31.0-37.0) g/dL Plt Count (150-450) k/uL Lymphocytes # (1.0-4.8) k/uL PT (9.0-12.0) sec Chloride (98-107) mmol/L Carbon Dioxide (22-30) mmol/L BUN (9-20) mg/dL Glucose (74-99) mg/dL Plasma Lactic Acid Dirk (0.7-2.0) mmol/L Calcium (8.4-10.2) mg/dL Total Bilirubin (0.2-1.3) mg/dL Amylase (30-110) U/L TSH 0.016 L (0.465-4.680) mIU/L Diabetes panel 07/02/21 07/03/21 Range/Units 15:49 06:47 Sodium 137 139 (137-145) mmol/L Potassium 3.6 4.2 (3.5-5.1) mmol/L Chloride 109 H 114 H (98-107) mmol/L Carbon Dioxide 19 L 20 L (22-30) mmol/L BUN 8 L 10 (9-20) mg/dL Creatinine 0.68 0.69 (0.66-1.25) mg/dL Glucose 89 71 L (74-99) mg/dL Calcium 8.8 8.0 L (8.4-10.2) mg/dL AST 28 (17-59) U/L ALT 15 (4-49) U/L Alkaline Phosphatase 107 (38-126) U/L Total Protein 7.2 (6.3-8.2) g/dL Albumin 3.7 (3.5-5.0) g/dL Thyroid panel 07/03/21 Range/Units 06:47 TSH 0.016 L (0.465-4.680) mIU/L Calcium panel 07/02/21 07/03/21 Range/Units 15:49 06:47 Calcium 8.8 8.0 L (8.4-10.2) mg/dL Albumin 3.7 (3.5-5.0) g/dL Pituitary panel 07/02/21 07/03/21 07/03/21 Range/Units 15:49 06:47 06:47 Sodium 137 139 (137-145) mmol/L Potassium 3.6 4.2 (3.5-5.1) mmol/L Chloride 109 H 114 H (98-107) mmol/L Carbon Dioxide 19 L 20 L (22-30) mmol/L BUN 8 L 10 (9-20) mg/dL Creatinine 0.68 0.69 (0.66-1.25) mg/dL Glucose 89 71 L (74-99) mg/dL Calcium 8.8 8.0 L (8.4-10.2) mg/dL TSH 0.016 L (0.465-4.680) mIU/L Adrenal panel 07/02/21 07/03/21 Range/Units 15:49 06:47 Sodium 137 139 (137-145) mmol/L Potassium 3.6 4.2 (3.5-5.1) mmol/L Chloride 109 H 114 H (98-107) mmol/L Carbon Dioxide 19 L 20 L (22-30) mmol/L BUN 8 L 10 (9-20) mg/dL Creatinine 0.68 0.69 (0.66-1.25) mg/dL Glucose 89 71 L (74-99) mg/dL Calcium 8.8 8.0 L (8.4-10.2) mg/dL Total Bilirubin 2.3 H (0.2-1.3) mg/dL AST 28 (17-59) U/L ALT 15 (4-49) U/L Alkaline Phosphatase 107 (38-126) U/L Total Protein 7.2 (6.3-8.2) g/dL Albumin 3.7 (3.5-5.0) g/dL - Imaging Abdominal x-ray: report reviewed, image reviewed Assessment and Plan (1) Cirrhosis Current Visit: Yes Status: Acute Code(s): K74.60 - UNSPECIFIED CIRRHOSIS OF LIVER SNOMED Code(s): 44408758 (2) Abdominal pain Current Visit: Yes Status: Acute Code(s): R10.9 - UNSPECIFIED ABDOMINAL PAIN SNOMED Code(s): 26117921 Plan: The patient has air and stool in the large and small intestine with no obvious obstruction seen on plain abdominal x-ray. We'll start him on a diet. If this causes worsening pain repeat computed tomography scan with oral contrast. If he does develop a obstruction which would require surgery he would need to be transferred due to his history of cirrhosis and varices seen on previous imaging
[2021-07-03 11:33] LABS: INR 1.1 (<1.2); Partial Thromboplastin Time 27.8 sec (22.0-30.0); Prothrombin Time 11.8 sec (9.0-12.0)
--- NOTE | 2021-07-03 11:43 | CA ---
Transthoracic Echo Report Name: Chaparro Mota Age: 71 Gender: M : 1950 Exam Date: 07/03/2021 08:13 Exam Location: [place] [facility] Ht (in): 69 Wt (lb): 130 Ordering Physician: Goyo Rosales MD Attending/Referring Phys: Barrel Rifler Hook Riya Arnett RDCS Procedure CPT: Indications: afib Cardiac Hx: Technical Quality: Fair Contrast 1: Total Dose (mL): Contrast 2: Total Dose (mL): MEASUREMENTS (Male / Female) Normal Values 2D ECHO LV Diastolic Diameter PLAX 4.3 cm 4.2 - 5.9 / 3.9 - 5.3 cm LV Systolic Diameter PLAX 3.1 cm IVS Diastolic Thickness 1.1 cm 0.6 - 1.0 / 0.6 - 0.9 cm LVPW Diastolic Thickness 1.0 cm 0.6 - 1.0 / 0.6 - 0.9 cm LV Relative Wall Thickness 0.5 RV Internal Dim ED PLAX 3.0 cm LA Systolic Diameter LX 3.6 cm 3.0 - 4.0 / 2.7 - 3.8 cm LA Volume 72.1 cm??? 18 - 58 / 22 - 52 cm??? M-MODE Aortic Root Diameter MM 3.5 cm MV E Point Septal Separation 0.6 cm AV Cusp Separation MM 2.1 cm DOPPLER AV Peak Velocity 160.1 cm/s AV Peak Gradient 10.3 mmHg MV Area PHT 3.1 cm??? Mitral E Point Velocity 142.4 cm/s Mitral A Point Velocity 88.5 cm/s Mitral E to A Ratio 1.6 MV Deceleration Time 245.6 ms MV E' Velocity 9.9 cm/s Mitral E to MV E' Ratio 14.4 TR Peak Velocity 280.8 cm/s TR Peak Gradient 31.5 mmHg Right Ventricular Systolic Press 35.0 mmHg FINDINGS Left Ventricle Left ventricular ejection fraction is estimated at 60-65%. Normal Left ventricular size, wall thickness, systolic function with no obvious regional wall motion abnormalities. Normal Left ventricular diastolic filling pattern. Mildly increased septal wall thickness. Right Ventricle Normal right ventricular size and function. Right Atrium Normal right atrial size. Left Atrium Moderately increased left atrial volume. No evidence for an atrial septal defect. Mitral Valve Mitral valve thickened. Mild mitral annular calcification. [id number] mitral regurgitation. Aortic Valve Diffuse thickening (sclerosis) of the aortic valve cusps without reduced excursion. Tricuspid Valve Mild tricuspid regurgitation. Pulmonic Valve Pulmonic valve not well visualized. Pericardium Normal pericardium. Aorta Normal size aortic root and proximal ascending aorta. CONCLUSIONS Normal LV systolic function Moderate left atrial enlargement Mild to moderate mitral regurgitation Previewed by: Dr. Manuel Canales MD (Electronically Signed) Final Date: 03 Jul 2021 11:42
[2021-07-03 12:52] LABS: T4, Free (Free Thyroxine) 2.95 ng/dL (0.78-2.19)
[2021-07-03] MEDS: HEPARIN SODIUM,PORCINE/PF 5,000 UNIT/0.5 ML SYRINGE SQ SCH (15:26)
[2021-07-03 16:23] VITALS: BP 123/78; PULSE 73; RESP 20
--- NOTE | 2021-07-04 10:26 | P.DS ---
Providers Date of admission: 07/02/21 16:45 Expected date of discharge: 07/03/21 Attending physician: Alyssia Jordan MD Consults: 07/02/21 17:05 Consult Physician Routine Consulting Provider: Iva Willams Consult Reason/Comments: Small bowel obstruction, abdominal pain Do you want consulting provider notified?: Yes 07/02/21 17:36 Consult Physician Routine Consulting Provider: Rosaura Lin Consult Reason/Comments: afib Do you want consulting provider notified?: Yes Primary care physician: Physician Nonstaff Hospital Course: Final diagnosis Right upper quadrant abdominal pain, rule out cholelithiasis or cholecystitis Elevated plasma lactic acid Cirrhosis of the liver and TIPS History of diabetes mellitus, type II Possible small bowel obstruction on recent CT at [place] Urinary artery disease Hypertension Atrial fibrillation Discharge disposition Patient is being discharged in a stable condition with guarded prognosis to home. Patient will follow-up with Dr. Laura Angeles in the outpatient setting upon discharge. Patient is to follow-up with cardiology as well and patient does have a GI specialist out of [facility] and instructed him to follow-up as well in the outpatient setting. Recommend patient to continue with clear liquid diet and advance slowly as tolerated. Patient will need outpatient follow-up with primary care provider for repeat TSH and free T4. Total time taken is greater than 35 minutes. Hospital course This is a 71-year-old male who was recently admitted with abdominal pain that had been progressively getting worse and more intense over the last 2 days in the upper right quadrant and apparently had gone to an outside ER at [place] with a computed tomography scan showing small bowel obstruction and was being closely monitored. Patient was evaluated by cardiology along with general surgery and no plans for surgical intervention at this time and recommend starting clear liquid diet and monitoring for tolerance his abdominal pain improved. Cardiology recommends holding on anticoagulation at this time and will follow-up in the outpatient setting in 1 week. Patient does have a GI specialist in the outpatient setting through [facility] and encourage the patient to follow-up with them and if requiring surgery would need tertiary treatment center for surgical interventions given his extensive history of c irrhosis. Patient was started on metoprolol by cardiology and recommended follow-up in one week as he does not have a air tube releaser. Currently no reports of chest pain, shortness of breath, or palpitations. Patient is afebrile. No reports of nausea or vomiting and patient is tolerating diet. Patient will be discharged home today. Guarded prognosis On exam vital signs are stable. Cardio S1, S2 are muffled. Respiratory system shows diminished breath sounds at the bases with no wheezing or rhonchi noted. Abdomen is soft and nontender. Nervous system shows no focal deficits. Please refer to medication reconciliation sheet for a list of medications. The impression and plan of care has been dictated by Sharron Jade, Nurse Practitioner as directed. Dr. Bobby MD I have performed a history and examination and MDM of this patient, discussed the same with the dictator, and agree with the dictator's assessment and plan as written ,documented as a scribe. Based on total visit time, I have performed more than 50% of the visit. Patient Condition at Discharge: Fair Plan - Discharge Summary Discharge Rx Participant: Yes New Discharge Prescriptions: New Metoprolol Succinate (ER) [Toprol XL] 25 mg PO 0600,1800 30 Days #60 tab Pantoprazole Sodium [Protonix] 40 mg PO DAILY #30 tab Continue traZODone HCL 100 mg PO HS PRN PRN Reason: Insomnia Discharge Medication List traZODone HCL 100 mg PO HS PRN 06/06/20 [History] Metoprolol Succinate (ER) [Toprol XL] 25 mg PO 0600,1800 30 Days #60 tab 07/03/21 [Rx] Pantoprazole Sodium [Protonix] 40 mg PO DAILY #30 tab 07/03/21 [Rx] Follow up Appointment(s)/Referral(s): Jasbir Lester MD [STAFF PHYSICIAN] - 1 Week Nonstaff,Physician [Primary Care Provider] - 1-2 days Patient Instructions/Handouts: Cirrhosis (GEN), Abdominal Pain (GEN) Activity/Diet/Wound Care/Special Instructions: Activity Limited until follow-up Follow-up with primary care provider on discharge Follow-up with GI outpatient Continue on clear liquid diet and slowly advance as tolerated Continue taking medications as prescribed Follow-up with cardiology in 1-2 weeks Discharge Disposition: HOME SELF-CARE
== END 2021-07-03 16:36 | disposition home or self-care (01) | DRG 390 ==
LOC: EC 14:22 → 5NMEDONC 16:45 → 3SCARD 17:48
PROVIDERS: ADMIT Internal Medicine; ATTEND Internal Medicine
DX: K56.609 Unspecified intestinal obstruction, unspecified as to partial versus complete obstruction (principal); K70.30 Alcoholic cirrhosis of liver without ascites; E11.9 Type 2 diabetes mellitus without complications; I48.0 Paroxysmal atrial fibrillation; I10 Essential (primary) hypertension; I25.10 Atherosclerotic heart disease of native coronary artery without angina pectoris; L29.9 Pruritus, unspecified; M19.90 Unspecified osteoarthritis, unspecified site; F17.210 Nicotine dependence, cigarettes, uncomplicated; Z90.89 Acquired absence of other organs; Z87.19 Personal history of other diseases of the digestive system; Z87.81 Personal history of (healed) traumatic fracture; Z86.59 Personal history of other mental and behavioral disorders; Z98.890 Other specified postprocedural states; Z82.3 Family history of stroke; Z83.3 Family history of diabetes mellitus
CPT/HCPCS: 36415; 71045; 74019; 80048; 80053; 81003; 82140; 82150; 83605; 83690; 84439; 84443; 84484; 85025; 85610; 85730; 93005; 93306; 96361; 96374; 96375; 99285

== ENCOUNTER 2021-10-25 16:52 | Emergency (ER) | payer MEDICARE ==
[2021-10-25 17:16] VITALS: TEMP 98
[2021-10-25] MEDS ORDERED: HYDROmorphone 0.5 MG/0.5 ML SYRINGE IVP STA ×2 (19:27→21:33)
[2021-10-25] MEDS: KETOROLAC 15 MG/ML 1 ML VIAL IVP STA ×2 (19:45→19:49)
[2021-10-25 19:54] VITALS: RESP 16
[2021-10-25 20:00] LABS: Basophils % (A) 1 %; Eosinophils # (A) 0.1 k/uL (0-0.7); Eosinophils % (A) 2 %; HCT 41.5 % (39.0-53.0); HGB 13.3 gm/dL (13.0-17.5); Lymphocytes # (A) 0.8 k/uL (1.0-4.8); Lymphocytes % (A) 15 %; MCH 29.9 pg (25.0-35.0); MCHC 32.1 g/dL (31.0-37.0); MCV 93.1 fL (80.0-100.0); Mean Platelet Volume 8.2; Monocytes # (A) 0.3 k/uL (0-1.0); Monocytes % (A) 7 %; Neutrophils # (A) 3.9 k/uL (1.3-7.7); Neutrophils % (A) 74 %; Platelet Count 114 k/uL (150-450); RBC 4.46 m/uL (4.30-5.90); RDW 15.8 % (11.5-15.5); WBC 5.2 k/uL (3.8-10.6)
[2021-10-25 20:13] LABS: Albumin 3.7 g/dL (3.5-5.0); C Reactive Protein 0.7 mg/dL (<1.0); Potassium 3.9 mmol/L (3.5-5.1); Total Bilirubin 1.9 mg/dL (0.2-1.3); Total Protein 7.1 g/dL (6.3-8.2)
--- NOTE | 2021-10-25 20:23 | XR ---
EXAMINATION TYPE: XR Hip RT and AP Pelvis DATE OF EXAM: 10/25/2021 COMPARISON: NONE HISTORY: Groin pain TECHNIQUE: 3 views FINDINGS: The pelvic ring is intact. The proximal right femur and hip joint appear intact. No evidenc e of hip fracture. There is left hip surgery from old intertrochanteric fracture of the femur. The sa croiliac joints are intact. IMPRESSION: No acute abnormality of the pelvis and right hip.
[2021-10-25 20:47] LABS: Erythrocyte Sedimentation Rate 6 mm/hr (0-15)
--- NOTE | 2021-10-25 20:47 | ED ---
Abdominal Pain HPI - General Chief Complaint: Abdominal Pain Stated Complaint: groin pain Time Seen by Provider: 10/25/21 19:06 Source: patient, RN notes reviewed Mode of arrival: ambulatory Limitations: no limitations - History of Present Illness Initial Comments: This is a 71-year-old male who presents to the emergency department for right groin pain. Patient states that this began 2 weeks ago. He is unsure if it is any worse, but states that it is not getting any better. He has pain to the touch and when he tries to walk. Patient is tearful in the examination room. Feels like the pain may be going into his testicles. Denies any fevers, chills, nausea, or vomiting. Denies any fevers, chills, sore throat, cough, dyspnea, chest pain, palpitations, nausea, vomiting, diarrhea, back pain, or headaches. MD Complaint: abdominal pain, other (Right groin pain) Onset/Timin -: week(s) Consistency: constant - Related Data Home Medications Medication Instructions Recorded Confirmed traZODone HCL 100 mg PO HS PRN 06/06/20 07/02/21 Previous Rx's Medication Instructions Recorded Metoprolol Succinate (ER) [Toprol 25 mg PO 0600,1800 30 Days #60 tab 07/03/21 XL] Pantoprazole Sodium [Protonix] 40 mg PO DAILY #30 tab 07/03/21 HYDROcodone/APAP 5-325MG [[place] 1 tab PO Q6HR PRN 3 Days #12 tab 10/25/21 5-325] Allergies Allergy/AdvReac Type Severity Reaction Status Date / Time No Known Allergies Allergy Verified 10/25/21 17:16 Review of Systems ROS Statement: Those systems with pertinent positive or pertinent negative responses have been documented in the HPI. ROS Other: All systems not noted in ROS Statement are negative. Past Medical History Past Medical History: Coronary Artery Disease (CAD), Hypertension, Liver Disease, Osteoarthritis (OA) Additional Past Medical History / Comment(s): irregular heart beat in past due to Popanolol-per pt, alcoholic cirrhosis History of Any Multi-Drug Resistant Organisms: None Reported Past Surgical History: Orthopedic Surgery, Tonsillectomy Additional Past Surgical History / Comment(s): multiple paracentesis,left hip fractures repair, right 2 and 3 digit repair Past Anesthesia/Blood Transfusion Reactions: No Reported Reaction Past Psychological History: Anxiety, Depression Smoking Status: Current every day smoker Past Alcohol Use History: None Reported Past Drug Use History: Marijuana - Past Family History Father Family Medical History: No Reported History Sister(s) Family Medical History: Diabetes Mellitus Brother(s) Family Medical History: CVA/TIA, Diabetes Mellitus General Exam Limitations: no limitations General appearance: alert, in distress Head exam: Present: atraumatic, normocephalic, normal inspection Respiratory exam: Present: normal lung sounds bilaterally. Absent: respiratory distress, wheezes, rales, rhonchi, stridor Cardiovascular Exam: Present: regular rate, normal rhythm, normal heart sounds. Absent: systolic murmur, diastolic murmur, rubs, gallop, clicks GI/Abdominal exam: Present: soft, normal bowel sounds. Absent: distended, tenderness, guarding, rebound, rigid exam: Present: normal inspection, testicular tenderness. Absent: urethral discharge External exam: Present: normal external exam Expanded exam: Cremasteric Reflex Present: Left, Right Extremities exam: Present: other (Tender to palpation over the right greater trochanter.) Neurological exam: Present: alert, oriented X3, CN II-XII intact Psychiatric exam: Present: normal affect, normal mood Skin exam: Present: warm, dry, intact, normal color. Absent: rash Course Vital Signs 10/25/21 10/25/21 10/25/21 17:13 19:54 23:55 Temperature 98 F Pulse Rate 76 61 Respiratory 20 16 16 Rate Blood Pressure 102/58 134/79 111/98 O2 Sat by Pulse 99 98 Oximetry Medical Decision Making - Medical Decision Making This is a 71-year-old male who presents to the emergency department for right groin pain. Lab work was nonactionable. X-ray of the right hip and pelvis as well as a computed tomography scan of the abdomen and pelvis were obtained, all of which revealed no explanation for the patient's symptoms. Ultrasound of the groin and scrotum revealed bilateral hydroceles, right greater than left. It is possible that this is the cause of the patient's pain, however this does not rule out other contributing factors. Patient given information for follow-up with urology to discuss the hydroceles. Also advised elevating the scrotum, alternating with ibuprofen and Tylenol, taking warm baths with Epsom salts, and wearing supportive undergarments. Patient was given 3 day course of [place], as his pain has not been adequately managed at home. Advised to use this sparingly when his pain is the most severe. Also discussed applying warm compresses to see if that offers any additional relief. Return precautions reviewed in depth, the patient is instructed to return to the emergency department with any new, worsening, or concerning symptoms. Patient verbalized understanding. This case was discussed in detail with the attending ED physician. Presentation, findings, and treatment plan discussed in detail as well. - Lab Data Result diagrams: 10/25/21 19:54 10/25/21 19:54 Lab Results 10/25/21 10/25/21 10/25/21 Range/Units 19:54 19:54 21:28 WBC 5.2 (3.8-10.6) k/uL RBC 4.46 (4.30-5.90) m/uL Hgb 13.3 (13.0-17.5) gm/dL Hct 41.5 (39.0-53.0) % MCV 93.1 (80.0-100.0) fL MCH 29.9 (25.0-35.0) pg MCHC 32.1 (31.0-37.0) g/dL RDW 15.8 H (11.5-15.5) % Plt Count 114 L (150-450) k/uL MPV 8.2 Neutrophils % 74 % Lymphocytes % 15 % Monocytes % 7 % Eosinophils % 2 % Basophils % 1 % Neutrophils # 3.9 (1.3-7.7) k/uL Lymphocytes # 0.8 L (1.0-4.8) k/uL Monocytes # 0.3 (0-1.0) k/uL Eosinophils # 0.1 (0-0.7) k/uL Basophils # 0.0 (0-0.2) k/uL ESR 6 (0-15) mm/hr Sodium 139 (137-145) mmol/L Potassium 3.9 (3.5-5.1) mmol/L Chloride 106 (98-107) mmol/L Carbon Dioxide 20 L (22-30) mmol/L Anion Gap 13 mmol/L BUN 10 (9-20) mg/dL Creatinine 0.99 (0.66-1.25) mg/dL Est GFR (CKD-EPI)AfAm 89 (>60 ml/min/1.73 sqM) Est GFR (CKD-EPI)NonAf 77 (>60 ml/min/1.73 sqM) Glucose 104 H (74-99) mg/dL Calcium 9.0 (8.4-10.2) mg/dL Total Bilirubin 1.9 H (0.2-1.3) mg/dL AST 31 (17-59) U/L ALT 11 (4-49) U/L Alkaline Phosphatase 70 (38-126) U/L C-Reactive Protein 0.7 (<1.0) mg/dL Total Protein 7.1 (6.3-8.2) g/dL Albumin 3.7 (3.5-5.0) g/dL Urine Color Yellow Urine Appearance Clear (Clear) Urine pH 6.5 (5.0-8.0) Ur Specific [place] 1.021 (1.001-1.035) Urine Protein Negative (Negative) Urine Glucose (UA) Negative (Negative) Urine Ketones Negative (Negative) Urine Blood Negative (Negative) Urine Nitrite Negative (Negative) Urine Bilirubin Negative (Negative) Urine Urobilinogen <2.0 (<2.0) mg/dL Ur Leukocyte Esterase Negative (Negative) - Radiology Data Radiology results: report reviewed, image reviewed Disposition Clinical Impression: Hydrocele, bilateral Disposition: HOME SELF-CARE Instructions (If sedation given, give patient instructions): Hydrocele (ED) Additional Instructions: Return to the emergency department with any new, worsening, or concerning symptoms. Elevate the scrotum at night with a small towel. Take Ibuprofen and Tylenol as needed for pain relief. You can also try warm baths with Epsom salts. Also wear supportive undergarments as opposed to boxers. Contact urology, Dr. Pepper, as listed below for a follow up appointment. Alternate with ibuprofen and Tylenol as needed for pain relief. Take the [place] sparingly when your pain is the most severe. Prescriptions: HYDROcodone/APAP 5-325MG [[place] 5-325] 1 tab PO Q6HR PRN 3 Days #12 tab PRN Reason: Pain Is patient prescribed a controlled substance at d/c from ED?: Yes When asked, does pt state using other controlled substances?: No If prescribed controlled substance>3 days was MAPS reviewed?: Prescribed <3 Days Referrals: None,Stated [Primary Care Provider] - 1-2 days Rainer Pepper MD [STAFF PHYSICIAN] - 1-2 days
--- NOTE | 2021-10-25 21:25 | CT ---
EXAMINATION TYPE: CT abdomen pelvis w con DATE OF EXAM: 10/25/2021 COMPARISON: 06/06/2020 HISTORY: RLQ pain CT DLP: 697 mGycm Automated exposure control for dose reduction was used. CONTRAST: Performed with IV Contrast, patient injected with 100 mL of Isovue 300. Images obtained from the diaphragm to the floor the pelvis with the IV contrast. There is a mild to moderate right pleural effusion. Heart size is normal. There is portal caval shunt catheter noted. Spleen is intact. The liver is irregular and consistent with cirrhosis. The bile braden ts are not dilated. Gallbladder is intact. The stomach is intact. No evidence of pancreatic mass. The re is inferior vena cava filter. There is no adrenal mass. Kidneys show satisfactory contrast opacification. There is no hydronephrosi s. Ureters are not dilated. Bladder distends smoothly. No inguinal hernia. There are some sigmoid div erticula. No diverticulitis. There is left hip nailing noted. There is no mesenteric edema. No evidence of any significant abdominal ascites fluid. The lumbar spin e shows L2 and L1 compression deformities of 2:30 percent. No change. The bony pelvis is intact. No e vidence of free air. IMPRESSION: There is right pleural effusion which appears new compared to old exam. There is clearing of the asci marin fluid compared to old exam. There is portosystemic shunt catheter noted. There is colonic diverti culosis without diverticulitis. Hepatic changes consistent with cirrhosis.
[2021-10-25] MEDS ORDERED: MORPHINE SULFATE 4 MG/ML SYRINGE IVP STA (21:36)
[2021-10-25 21:53] LABS: Appearance,Urine Clear (Clear); Bilirubin,Urine Negative (Negative); Blood,Urine Negative (Negative); Color,Urine Yellow; Glucose,Urine (UA) Negative (Negative); Ketones,Urine Negative (Negative); Leukocyte Esterase,Urine Negative (Negative); Nitrite,Urine Negative (Negative); PH, Urine 6.5 (5.0-8.0); Protein,Urine Negative (Negative); Specific Gravity,Urine 1.021 (1.001-1.035); Urobilinogen,Urine <2.0 mg/dL (<2.0)
--- NOTE | 2021-10-25 22:27 | US ---
EXAMINATION TYPE: US scrotum with doppler. Grayscale and color Doppler Duplex imaging performed of t connie scrotum. DATE OF EXAM: 10/25/2021 COMPARISON: NONE CLINICAL HISTORY: Pain. RLQ pain x couple months, recently got worse. EXAM MEASUREMENTS: TESTICLES: Right Testicle: 3.8 x 2.4 x 2.1 cm Left Testicle: 3.7 x 2.3 x 2.0 cm EPIDIDYMIS HEAD: Right Epididymis: 0.8 x 0.7 x 0.6 cm Left Epididymis: 1.0 x 1.0 x 0.8 cm Doppler performed to assess for testicular vascularity; good bilateral color flow and waveforms are s een. There is no evidence of testicular torsion. Presence of hydroceles: Yes. Larger on the right side Presence of varicoceles: No IMPRESSION: There is evidence of bilateral mild hydroceles. No testicular torsion or mass.
--- NOTE | 2021-10-25 22:29 | US ---
EXAMINATION TYPE: US groin RT DATE OF EXAM: 10/25/2021 COMPARISON: NONE CLINICAL HISTORY: Pain. RLQ pain x couple months, recently got worse. No obvious pathology was seen. Peristalsing bowel was visualized. IMPRESSION: No solid or cystic mass identified in the right groin. No evidence of a hernia sac. No e vidence of adenopathy.
[2021-10-25] MEDS ORDERED: ACET/COD 300 MG/30 MG STARTER PACK 6 TAB BTL PO STA (23:08)
[2021-10-25 23:57] VITALS: BP 111/98; PULSE 61
== END 2021-10-26 00:05 | disposition home or self-care (01) ==
LOC: EC 16:52
DX: N43.3 Hydrocele, unspecified (principal); F17.200 Nicotine dependence, unspecified, uncomplicated; I10 Essential (primary) hypertension
CPT/HCPCS: 36415; 80053; 85652; 85025; 86140; 81003; 73502; 93975; 76870; 76882; 74177; 99284; 96374; 96375; J2270; J1170; Q9967

== ENCOUNTER 2022-08-14 09:03 | Emergency (ER) | payer MEDICARE ==
[2022-08-14 09:13] VITALS: RESP 18; TEMP 98.6
[2022-08-14] MEDS ORDERED: PANTOPRAZOLE 40 MG/10 ML VIAL IVP STA (09:28)
[2022-08-14] MEDS ORDERED: SODIUM CHLORIDE 0.9% 500 ML 500 ML IV ONE (09:29)
[2022-08-14 10:04] LABS: Basophils % (A) 0 %; Eosinophils # (A) 0.1 k/uL (0-0.7); Eosinophils % (A) 2 %; HCT 46.9 % (39.0-53.0); HGB 15.3 gm/dL (13.0-17.5); Lymphocytes # (A) 0.3 k/uL (1.0-4.8); Lymphocytes % (A) 11 %; MCHC 32.5 g/dL (31.0-37.0); MCV 98.3 fL (80.0-100.0); Mean Platelet Volume 8.1; Monocytes # (A) 0.2 k/uL (0-1.0); Monocytes % (A) 5 %; Neutrophils # (A) 2.6 k/uL (1.3-7.7); Neutrophils % (A) 81 %; Platelet Count 106 k/uL (150-450); RBC 4.77 m/uL (4.30-5.90); RDW 14.6 % (11.5-15.5); WBC 3.2 k/uL (3.8-10.6)
[2022-08-14] MEDS ORDERED: MORPHINE SULFATE 4 MG/ML SYRINGE IVP STA (10:07)
--- NOTE | 2022-08-14 10:11 | ED ---
General Adult HPI - General Chief complaint: GI Bleed Stated complaint: Recheck Time Seen by Provider: 08/14/22 09:19 Source: patient, RN notes reviewed, old records reviewed Mode of arrival: wheelchair Limitations: no limitations - History of Present Illness Initial comments: 72-year-old male presenting for evaluation of abdominal pain and diarrhea. S ymptoms have been present for the past 5 or 6 days. The patient states his stool has been black. He denies any anticoagulation. He has previous history of cirrhosis. History of tips procedure. No vomiting. No fever. - Related Data Home Medications Medication Instructions Recorded Confirmed traZODone HCL 100 mg PO HS PRN 06/06/20 07/02/21 Previous Rx's Medication Instructions Recorded Metoprolol Succinate (ER) [Toprol 25 mg PO 0600,1800 30 Days #60 tab 07/03/21 XL] Pantoprazole Sodium [Protonix] 40 mg PO DAILY #30 tab 07/03/21 HYDROcodone/APAP 5-325MG [[place] 1 tab PO Q6HR PRN 3 Days #12 tab 10/25/21 5-325] Allergies Allergy/AdvReac Type Severity Reaction Status Date / Time No Known Allergies Allergy Verified 08/14/22 09:13 Review of Systems ROS Statement: Those systems with pertinent positive or pertinent negative responses have been documented in the HPI. ROS Other: All systems not noted in ROS Statement are negative. Past Medical History Past Medical History: Atrial Fibrillation, Coronary Artery Disease (CAD), COPD, Diabetes Mellitus, Hypertension, Liver Disease, Osteoarthritis (OA) Additional Past Medical History / Comment(s): irregular heart beat hx, alcoholic cirrhosis, transjugular intrahepatic portosystemic shunt (TIPS), SBO, hydrocele, BPH, History of Any Multi-Drug Resistant Organisms: None Reported Past Surgical History: Hernia Repair, Orthopedic Surgery, Tonsillectomy Additional Past Surgical History / Comment(s): multiple paracentesis,left hip fractures repair, right 2 and 3 digit repair Past Anesthesia/Blood Transfusion Reactions: No Reported Reaction Past Psychological History: Anxiety, Depression Smoking Status: Current some day smoker Past Alcohol Use History: Abuse, Heavy Past Drug Use History: Marijuana - Past Family History Father Family Medical History: No Reported History Sister(s) Family Medical History: Diabetes Mellitus Brother(s) Family Medical History: CVA/TIA, Diabetes Mellitus General Exam Limitations: no limitations General appearance: alert, in no apparent distress Head exam: Present: atraumatic, normocephalic Eye exam: Present: normal appearance, PERRL ENT exam: Present: normal exam Neck exam: Present: normal inspection Respiratory exam: Present: normal lung sounds bilaterally. Absent: respiratory distress, wheezes Cardiovascular Exam: Present: regular rate, normal rhythm GI/Abdominal exam: Present: soft, tenderness (Right lower quadrant). Absent: distended Rectal exam: Absent: black stool, bloody stool, hemorrhoids Extremities exam: Present: normal inspection Neurological exam: Present: alert, oriented X3, CN II-XII intact. Absent: motor sensory deficit Psychiatric exam: Present: normal affect, normal mood Skin exam: Present: warm, dry, intact Course Vital Signs 08/14/22 08/14/22 09:10 10:37 Temperature 98.6 F Pulse Rate 68 66 Respiratory 18 18 Rate Blood Pressure 125/81 116/78 O2 Sat by Pulse 97 97 Oximetry Medical Decision Making - Medical Decision Making Was pt. sent in by a medical professional or institution (, PA, INSTRUCTOR DANCING, urgent care, hospital, or [place] health care facility...) When possible be specific @ -No Did you speak to anyone other than the patient for history (EMS, parent, family, police, friend...)? What history was obtained from this source @ -No Did you review nursing and triage notes (agree or disagree)? Why? @ -I reviewed and agree with nursing and triage notes Were old charts reviewed (outside hosp., previous admission, EMS record, old EKG, old radiological studies, urgent care reports/EKG's, [place] health care facility records)? Report findings @ -No old charts were reviewed Differential Diagnosis (chest pain, altered mental status, abdominal pain women, abdominal pain men, vaginal bleeding, weakness, fever, dyspnea, syncope, headache, dizziness, GI bleed, back pain, seizure, CVA, palpatations, mental health, musculoskeletal)? @ Differential Abdominal Pain Men: Appendicitis, cholecystitis, diverticulosis, ischemic bowel, pancreatitis, hepatitis, UTI, gastroenteritis, AAA, incarcerated hernia, bowel obstruction, constipation, inflammatory bowel, hepatitis, peptic ulcer disease, splenic infarction, perforated viscus, testicular torsion, this is not meant to be an all-inclusive list EKG interpreted by me (3pts min.). @ -As above X-rays interpreted by me (1pt min.). @ -None done CT interpreted by me (1pt min.). @ -[CT showing colitis and gastritis as well as prior TIPS procedure U/S interpreted by me (1pt. min.). @ -None done What testing was considered but not performed or refused? (CT, X-rays, U/S, labs)? Why? @ -None What meds were considered but not given or refused? Why? @ -None Did you discuss the management of the patient with other professionals (professionals i.e. DrYecenia, PA, INSTRUCTOR DANCING, lab, RT, psych nurse, social insurance analyst, disaster recovery consultant, teacher, correctional officer chief, outsole caser)? Give summary @ -No Was smoking cessation discussed for >3mins.? @ -No Was critical care preformed (if so, how long)? @ -No Were there social determinants of health that impacted care today? How? (Homel essness, low income, unemployed, alcoholism, drug addiction, transportation, low edu. Level, literacy, decrease access to med. care, prison, rehab)? @ -No Was there de-escalation of care discussed even if they declined (Discuss DNR or withdrawal of care, Hospice)? DNR status @ -No What co-morbidities impacted this encounter? (DM, HTN, Smoking, COPD, CAD, Cancer, CVA, ARF, Chemo, Hep., AIDS, mental health diagnosis, sleep apnea, morbid obesity)? @ -[Liver cirrhosis Was patient admitted / discharged? Hospital course, mention meds given and route, prescriptions, significant lab abnormalities, going to OR and other pertinent info. @ -[72-year-old male presenting with diarrhea which she reports is black in nature does admit to taking iron supplementation. He has significant past medical history including liver cirrhosis. Patient's vital signs are stable. His abdominal tenderness in the right lower quadrant, no none in the right upper quadrant, no rebound or guarding. Workup was initiated including laboratory testing and CT imaging of the abdomen. Patient has a mild leukopenia of 3.2. His hemoglobin is 15.3 which is quite good. His Hemoccult testing is negative. CT shows gastritis and colitis. I do feel this patient will benefit from either admission or discharge with strict return parameters and outpatient gastroenterology follow-up. The patient prefers discharge at this time. I will prescribe omeprazole twice daily. He is given strict return parameters. Undiagnosed new problem with uncertain prognosis? @ -No Drug Therapy requiring intensive monitoring for toxicity (Heparin, Nitro, Insulin, Cardizem)? @ -No Were any procedures done? @ -No Diagnosis/symptom? @ -Colitis, gastritis Acute, or Chronic, or Acute on Chronic? @ -Acute Uncomplicated (without systemic symptoms) or Complicated (systemic symptoms)? @ -Very complicated Side effects of treatment? @ -No Exacerbation, Progression, or Severe Exacerbation? @ -No Poses a threat to life or bodily function? How? (Chest pain, [place], [place], pneumonia, PE, COPD, DKA, ARF, appy, cholecystitis, CVA, Diverticulitis, Homicidal, Suicidal, threat to staff... and all critical care pts) @ -Moderate risk in patient with liver cirrhosis - Lab Data Result diagrams: 08/14/22 09:38 08/14/22 09:38 Lab Results 08/14/22 08/14/22 08/14/22 Range/Units 09:38 09:38 09:38 WBC 3.2 L (3.8-10.6) k/uL RBC 4.77 (4.30-5.90) m/uL Hgb 15.3 (13.0-17.5) gm/dL Hct 46.9 (39.0-53.0) % MCV 98.3 (80.0-100.0) fL MCH 32.0 (25.0-35.0) pg MCHC 32.5 (31.0-37.0) g/dL RDW 14.6 (11.5-15.5) % Plt Count 106 L (150-450) k/uL MPV 8.1 Neutrophils % 81 % Lymphocytes % 11 % Monocytes % 5 % Eosinophils % 2 % Basophils % 0 % Neutrophils # 2.6 (1.3-7.7) k/uL Lymphocytes # 0.3 L (1.0-4.8) k/uL Monocytes # 0.2 (0-1.0) k/uL Eosinophils # 0.1 (0-0.7) k/uL Basophils # 0.0 (0-0.2) k/uL PT 12.2 H (9.0-12.0) sec INR 1.2 H (<1.2) APTT 27.2 (22.0-30.0) sec Sodium (137-145) mmol/L Potassium (3.5-5.1) mmol/L Chloride (98-107) mmol/L Carbon Dioxide (22-30) mmol/L Anion Gap mmol/L BUN (9-20) mg/dL Creatinine (0.66-1.25) mg/dL Est GFR (CKD-EPI)AfAm (>60 ml/min/1.73 sqM) Est GFR (CKD-EPI)NonAf (>60 ml/min/1.73 sqM) Glucose (74-99) mg/dL Calcium (8.4-10.2) mg/dL Magnesium (1.6-2.3) mg/dL Total Bilirubin (0.2-1.3) mg/dL AST (17-59) U/L ALT (4-49) U/L Alkaline Phosphatase (38-126) U/L Total Protein (6.3-8.2) g/dL Albumin (3.5-5.0) g/dL Stool Occult Blood Negative (Negative) Blood Type Blood Type Confirm Blood Type Recheck Bld Type Recheck Status Antibody Screen Spec Expiration Date 08/14/22 08/14/22 08/14/22 Range/Units 09:38 09:38 09:45 WBC (3.8-10.6) k/uL RBC (4.30-5.90) m/uL Hgb (13.0-17.5) gm/dL Hct (39.0-53.0) % MCV (80.0-100.0) fL MCH (25.0-35.0) pg MCHC (31.0-37.0) g/dL RDW (11.5-15.5) % Plt Count (150-450) k/uL MPV Neutrophils % % Lymphocytes % % Monocytes % % Eosinophils % % Basophils % % Neutrophils # (1.3-7.7) k/uL Lymphocytes # (1.0-4.8) k/uL Monocytes # (0-1.0) k/uL Eosinophils # (0-0.7) k/uL Basophils # (0-0.2) k/uL PT (9.0-12.0) sec INR (<1.2) APTT (22.0-30.0) sec Sodium 138 (137-145) mmol/L Potassium 3.8 (3.5-5.1) mmol/L Chloride 108 H (98-107) mmol/L Carbon Dioxide 20 L (22-30) mmol/L Anion Gap 10 mmol/L BUN 7 L (9-20) mg/dL Creatinine 0.79 (0.66-1.25) mg/dL Est GFR (CKD-EPI)AfAm >90 (>60 ml/min/1.73 sqM) Est GFR (CKD-EPI)NonAf >90 (>60 ml/min/1.73 sqM) Glucose 152 H (74-99) mg/dL Calcium 8.5 (8.4-10.2) mg/dL Magnesium 1.6 (1.6-2.3) mg/dL Total Bilirubin 2.0 H (0.2-1.3) mg/dL AST 35 (17-59) U/L ALT 22 (4-49) U/L Alkaline Phosphatase 98 (38-126) U/L Total Protein 6.3 (6.3-8.2) g/dL Albumin 3.2 L (3.5-5.0) g/dL Stool Occult Blood (Negative) Blood Type B Positive Blood Type Confirm B Positive Blood Type Recheck No Previous Record Bld Type Recheck Status CABO Indicated Antibody Screen NEGATIVE Spec Expiration Date 08/17/20222337 Disposition Clinical Impression: Abdominal pain, Cirrhosis, Diarrhea Disposition: HOME SELF-CARE Condition: Fair Instructions (If sedation given, give patient instructions): Abdominal Pain (ED), Colitis (ED) Prescriptions: Omeprazole [PriLOSEC] 20 mg PO AC-BID 30 Days #60 cap Is patient prescribed a controlled substance at d/c from ED?: No Referrals: Dimitry Chavez MD [Primary Care Provider] - 1-2 days Vero Canales MD [STAFF PHYSICIAN] - 1-2 days Time of Disposition: 12:02
[2022-08-14 10:16] LABS: INR 1.2 (<1.2); Partial Thromboplastin Time 27.2 sec (22.0-30.0); Prothrombin Time 12.2 sec (9.0-12.0)
[2022-08-14 10:26] LABS: ALT 22 U/L (4-49); AST 35 U/L (17-59); African American GFR (CKD) >90 (>60 ml/min/1.73 sqM); Albumin 3.2 g/dL (3.5-5.0); Alkaline Phosphatase 98 U/L (38-126); Anion Gap 10 mmol/L; Blood Urea Nitrogen 7 mg/dL (9-20); Calcium 8.5 mg/dL (8.4-10.2); Carbon Dioxide 20 mmol/L (22-30); Chloride 108 mmol/L (98-107); Glucose 152 mg/dL (74-99); Magnesium 1.6 mg/dL (1.6-2.3); Non-African American GFR(CKD) >90 (>60 ml/min/1.73 sqM); Potassium 3.8 mmol/L (3.5-5.1); Sodium 138 mmol/L (137-145); Total Protein 6.3 g/dL (6.3-8.2)
[2022-08-14 10:39] VITALS: BP 116/78
--- NOTE | 2022-08-14 11:39 | CT ---
EXAMINATION TYPE: CT abdomen pelvis w con CT DLP: 685 mGycm, Automated exposure control for dose reduction was used. DATE OF EXAM: 08/14/2022 11:05 AM COMPARISON: CT abdomen pelvis most recent from 10/25/2021 CLINICAL INDICATION:Male, 72 years old with history of RLQ pain/black stool; RLQ pain, Black stool TECHNIQUE: Axial CT of the abdomen and pelvis. Sagittal and coronal reformats were created on a [employer] workstation. Contrast used:100 ml mL of Isovue 300 with IV Contrast, (none if empty) Oral contrast used: without Oral Contrast (none if empty) FINDINGS: LOWER CHEST: Trace bilateral pleural effusions right greater left. ABDOMEN LIVER: TIPS is present and appears patent. The matted appearance to the liver with somewhat nodular c ontour. GALLBLADDER AND BILE DUCTS: Unremarkable. PANCREAS: 8 mm pancreatic tail probable cyst versus side branch intraductal papillary mucinous neopla sm. SPLEEN: Unremarkable. ADRENAL GLANDS: Unremarkable. KIDNEYS AND URETERS: No evidence of hydronephrosis or renal calculus. The ureters are unremarkable. PELVIS BLADDER: Unremarkable REPRODUCTIVE: Prostate is enlarged in size measuring 4.6 cm in transverse dimension. ABDOMEN & PELVIS STOMACH AND BOWEL: Circumferential wall thickening of the sigmoid colon with reyes measuring up to 7 mm. Loss also seen to be thickened along the transverse colon. Multiple colonic diverticula are prese nt. Hyperemia of the gastric reyes is present. PERITONEUM/RETROPERITONEUM: No evidence of pneumoperitoneum or free fluid. VASCULATURE: No evidence of aortic aneurysm. IVC filter in place. MUSCULOSKELETAL: No acute osseous abnormalities. Moderate disc degeneration changes are present throu ghout the thoracolumbar spine., fixation hardware in the left proximal hip. Hardware appears intact. LYMPH NODES: No gross evidence for lymphadenopathy. SOFT TISSUE/ABDOMINAL WALL: Unremarkable IMPRESSION: 1. Circumference wall thickness sigmoid colon correlate for colitis. No other finding in the abdomen or pelvis to correlate patient's pain. 2. Hyperemia of the gastric reyes correlate for gastritis. 3. TIPS procedure with with appearance of the liver suggesting congestive hepatopathy . 4. Trace bilateral pleural effusions, right greater than left. 5. Colonic diverticulosis.
[2022-08-14 12:13] VITALS: PULSE 18
== END 2022-08-14 12:13 | disposition home or self-care (01) ==
LOC: EC 09:03
DX: K57.30 Diverticulosis of large intestine without perforation or abscess without bleeding (principal); K70.30 Alcoholic cirrhosis of liver without ascites; J90 Pleural effusion, not elsewhere classified; I10 Essential (primary) hypertension; I25.10 Atherosclerotic heart disease of native coronary artery without angina pectoris; I48.91 Unspecified atrial fibrillation; E11.9 Type 2 diabetes mellitus without complications; J44.9 Chronic obstructive pulmonary disease, unspecified; F17.200 Nicotine dependence, unspecified, uncomplicated; F12.90 Cannabis use, unspecified, uncomplicated; Z79.899 Other long term (current) drug therapy
CPT/HCPCS: 36415; 86900; 86901; 80053; 83735; 85025; 85610; 85730; 86850; 82272; 74177; 99285; 96374; 96375; 96361; J2270; C9113; Q9967

== ENCOUNTER 2023-02-19 06:58 | Observation (INO) | payer MEDICARE ==
[2023-02-19] MEDS ORDERED: ONDANSETRON 4 MG/2 ML VIAL IVP STA (08:55)
[2023-02-19] MEDS ORDERED: SODIUM CHLORIDE 0.9% 500 ML 500 ML IV STA (08:55)
[2023-02-19 09:32] LABS: Basophils % (A) 1 %; Eosinophils # (A) 0.2 k/uL (0-0.7); Eosinophils % (A) 2 %; HCT 44.8 % (39.0-53.0); HGB 15.2 gm/dL (13.0-17.5); Lymphocytes # (A) 0.7 k/uL (1.0-4.8); Lymphocytes % (A) 10 %; MCH 34.6 pg (25.0-35.0); MCHC 33.8 g/dL (31.0-37.0); MCV 102.3 fL (80.0-100.0); Macrocytosis Slight; Mean Platelet Volume 7.3; Monocytes # (A) 0.5 k/uL (0-1.0); Monocytes % (A) 7 %; Neutrophils # (A) 5.3 k/uL (1.3-7.7); Neutrophils % (A) 79 %; Platelet Count 148 k/uL (150-450); RBC 4.38 m/uL (4.30-5.90); RDW 13.6 % (11.5-15.5); WBC 6.8 k/uL (3.8-10.6)
--- NOTE | 2023-02-19 09:42 | XR ---
EXAMINATION TYPE: XR chest 2V DATE OF EXAM: 02/19/2023 9:38 AM CLINICAL INDICATION:Male, 72 years old with history of Weakness; [facility] COMPARISON: 11/13/2022. TECHNIQUE: XR chest 2V Frontal and lateral views of the chest. FINDINGS: Lungs/Pleura: Prominent interstitial lung markings are seen scattered throughout the lungs. There is blunting of the right costophrenic angle. There may also be blunting of the left costophrenic angle. Pleural effusion tracking into the fissures on the right. No focal airspace consolidation. Pulmonary vascularity: Unremarkable. Heart/mediastinum: Cardiomediastinal silhouette is unremarkable. Musculoskeletal: No acute osseous pathology. Remote appearing right shoulder fracture. IMPRESSION: 1. Right pleural effusion possible left pleural effusion present.. 2. COPD changes.
[2023-02-19 09:44] LABS: INR 1.2 (<1.2); Partial Thromboplastin Time 28.1 sec (22.0-30.0); Prothrombin Time 12.9 sec (10.0-12.5)
[2023-02-19 10:13] LABS: NT-Pro-B-Type Natriuretic Pept 705 pg/mL
[2023-02-19 10:22] LABS: Lactic Acid, Venous 3.1 mmol/L (0.7-2.0)
[2023-02-19 10:31] LABS: ALT 17 U/L (4-49); AST 35 U/L (17-59); African American GFR (CKD) >90 (>60 ml/min/1.73 sqM); Albumin 3.3 g/dL (3.5-5.0); Alkaline Phosphatase 122 U/L (38-126); Anion Gap 12 mmol/L; Blood Urea Nitrogen 3 mg/dL (9-20); Calcium 8.5 mg/dL (8.4-10.2); Carbon Dioxide 19 mmol/L (22-30); Chloride 110 mmol/L (98-107); Glucose 87 mg/dL (74-99); Magnesium 1.6 mg/dL (1.6-2.3); Non-African American GFR(CKD) >90 (>60 ml/min/1.73 sqM); Potassium 3.7 mmol/L (3.5-5.1); Sodium 141 mmol/L (137-145); Total Bilirubin 1.6 mg/dL (0.2-1.3); Total Protein 6.6 g/dL (6.3-8.2)
[2023-02-19] MEDS ORDERED: HYDROcodone/APAP 10-325MG 1 EACH TAB PO ONE (11:45)
[2023-02-19] MEDS ORDERED: LORazepam 2 MG/ML INJ IV STA (11:45)
[2023-02-19 12:24] LABS: Appearance,Urine Clear (Clear); Bilirubin,Urine Negative (Negative); Blood,Urine Negative (Negative); Color,Urine Yellow; Glucose,Urine (UA) Negative (Negative); Ketones,Urine Negative (Negative); Leukocyte Esterase,Urine Negative (Negative); Nitrite,Urine Negative (Negative); PH, Urine 5.5 (5.0-8.0); Protein,Urine Negative (Negative); Urobilinogen,Urine <2.0 mg/dL (<2.0)
[2023-02-19] MEDS ORDERED: DILTIAZEM DRIP BOLUS FROM BAG 1 MG SOLN IV ONE (12:59)
[2023-02-19] MEDS ORDERED: DILTIAZEM 125 MG in SODIUM CHLORIDE 0.9% 100 ML IV SCH (13:00)
[2023-02-19] MEDS ORDERED: NALOXONE 0.4 MG/ML 1 ML VIAL IV PRN (13:06)
--- NOTE | 2023-02-19 13:06 | ED ---
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 States that he is weak, nauseated and vomiting. Also having constipation. States the symptoms have been going on for the past 2 days. He has a history of alcohol abuse and states that he is still drinking. He is to follow with a GI doctor in [place] however moved appear to years ago and has not followed up with GI. He used to be on lactulose. He is concerned his ammonia levels are high. He denies any chest pain or shortness of breath. No hematemesis. Denies any black or bloody stools. Admits to weight loss. No abdominal swelling. No other alleviating, precipitating or modifying factors - Related Data Home Medications Medication Instructions Recorded Confirmed traZODone HCL 100 mg PO HS 06/06/20 02/19/23 Calcium Carbonate [Calcium] 600 mg PO DAILY 02/19/23 02/19/23 HYDROcodone/APAP 7.5-325MG [[place] 1 tab PO Q4H PRN 02/19/23 02/19/23 7.5-325] Hydrocortisone Cream 1 applic TOPICAL BID PRN 02/19/23 02/19/23 [Hydrocortisone 2.5% Cream] Triamcinolone 0.1% Ointment 1 applic TOPICAL BID PRN 02/19/23 02/19/23 [Kenalog 0.1% Ointment] Vitamin B Complex 1 cap PO DAILY 02/19/23 02/19/23 Previous Rx's Medication Instructions Recorded Diltiazem Cd [Cardizem CD] 180 mg PO DAILY #10 cap 02/20/23 Allergies Allergy/AdvReac Type Severity Reaction Status Date / Time No Known Allergies Allergy Verified 02/19/23 11:47 Review of Systems ROS Statement: Those systems with pertinent positive or pertinent negative responses have been documented in the HPI. ROS Other: All systems not noted in ROS Statement are negative. Past Medical History Past Medical History: Atrial Fibrillation, Coronary Artery Disease (CAD), COPD, Diabetes Mellitus, Hypertension, Liver Disease, Osteoarthritis (OA) Additional Past Medical History / Comment(s): irregular heart beat hx, alcoholic cirrhosis, transjugular intrahepatic portosystemic shunt (TIPS), SBO, hydrocele, BPH, History of Any Multi-Drug Resistant Organisms: None Reported Past Surgical History: Hernia Repair, Orthopedic Surgery, Tonsillectomy Additional Past Surgical History / Comment(s): multiple paracentesis,left hip fractures repair, right 2 and 3 digit repair Past Anesthesia/Blood Transfusion Reactions: No Reported Reaction Past Psychological History: Anxiety, Depression Smoking Status: Current some day smoker Past Alcohol Use History: Abuse, Heavy Past Drug Use History: Marijuana - Past Family History Father Family Medical History: No Reported History Sister(s) Family Medical History: Diabetes Mellitus Brother(s) Family Medical History: CVA/TIA, Diabetes Mellitus General Exam Limitations: no limitations General appearance: alert, in no apparent distress, anxious Head exam: Present: atraumatic, normocephalic, normal inspection Eye exam: Present: normal appearance, PERRL, EOMI. Absent: scleral icterus, conjunctival injection, periorbital swelling ENT exam: Present: normal exam, mucous membranes moist Neck exam: Present: normal inspection. Absent: tenderness, meningismus, lymphadenopathy Respiratory exam: Present: normal lung sounds bilaterally. Absent: respiratory distress, wheezes, rales, rhonchi, stridor Cardiovascular Exam: Present: tachycardia, irregular rhythm, normal heart soun ds. Absent: systolic murmur, diastolic murmur, rubs, gallop, clicks GI/Abdominal exam: Present: soft, normal bowel sounds. Absent: distended, tenderness, guarding, rebound, rigid Extremities exam: Present: normal inspection, full ROM, normal capillary refill. Absent: tenderness, pedal edema, joint swelling, calf tenderness Back exam: Present: normal inspection Neurological exam: Present: alert, oriented X3, CN II-XII intact Psychiatric exam: Present: normal affect, normal mood Skin exam: Present: warm, dry, intact, normal color. Absent: rash Course Vital Signs 02/19/23 02/19/23 02/19/23 07:22 08:09 09:00 Temperature 97.6 F Pulse Rate 65 113 H 103 H Respiratory 18 36 H 22 Rate Blood Pressure 133/85 125/92 O2 Sat by Pulse 98 Oximetry 02/19/23 02/19/23 02/19/23 09:22 10:00 11:00 Temperature Pulse Rate 112 H 101 H 104 H Respiratory 18 19 22 Rate Blood Pressure 120/102 124/93 135/94 O2 Sat by Pulse Oximetry 02/19/23 02/19/23 02/19/23 12:00 13:00 14:00 Temperature Pulse Rate 114 H 123 H 80 Respiratory 18 16 Rate Blood Pressure 140/86 125/101 115/85 O2 Sat by Pulse Oximetry 02/19/23 02/19/23 02/19/23 15:00 16:00 17:00 Temperature Pulse Rate 92 90 88 Respiratory 12 13 14 Rate Blood Pressure 119/82 115/78 118/74 O2 Sat by Pulse Oximetry 02/19/23 02/19/23 19:00 19:38 Temperature 98.7 F Pulse Rate 86 100 Respiratory 20 16 Rate Blood Pressure 118/101 O2 Sat by Pulse 97 Oximetry Medical Decision Making - Medical Decision Making Was pt. sent in by a medical professional or institution (, PA, MANAGER OF DRILLING, urgent care, hospital, or long term...) When possible be specific @ -No Did you speak to anyone other than the patient for history (EMS, parent, family, police, friend...)? What history was obtained from this source @ -No Did you review nursing and triage notes (agree or disagree)? Why? @ -I reviewed and agree with nursing and triage notes Were old charts reviewed (outside hosp., previous admission, EMS record, old EKG, old radiological studies, urgent care reports/EKG's, long term records)? Report findings @ -No old charts were reviewed Differential Diagnosis (chest pain, altered mental status, abdominal pain women, abdominal pain men, vaginal bleeding, weakness, fever, dyspnea, syncope, h eadache, dizziness, GI bleed, back pain, seizure, CVA, palpatations, mental health, musculoskeletal)? @ -Differential Weakness: Hypoglycemia, shock, sepsis, hyponatremia, anemia, infection, RI, ETOH, adverse medicine reaction, overdose, stroke, this is not meant to be an all-inclusive list. EKG interpreted by me (3pts min.). @ - First EKG demonstrates A. fib with a rate of 103. Frequent PVCs. QRS 81. QTC of 389. No acute ST segment elevations or depressions Repeat EKG done at 1226 demonstrates A. fib with a rate of 128. QRS 82. QTC of 379. No acute ST segment elevations or depressions X-rays interpreted by me (1pt min.). @ -no acute process CT interpreted by me (1pt min.). @ -None done U/S interpreted by me (1pt. min.). @ -None done What testing was considered but not performed or refused? (CT, X-rays, U/S, labs)? Why? @ -None What meds were considered but not given or refused? Why? @ -None Did you discuss the management of the patient with other professionals (professionals i.e. DrYecenia, PA, MANAGER OF DRILLING, lab, RT, psych nurse, director social service, bus escort, teacher, global chief creative officer, case packer and sealer)? Give summary @ -dr vasquez Was smoking cessation discussed for >3mins.? @ -No Was critical care preformed (if so, how long)? @ -No Were there social determinants of health that impacted care today? How? (Homelessness, low income, unemployed, alcoholism, drug addiction, transportation, low edu. Level, literacy, decrease access to med. care, fci, rehab)? @ -No Was there de-escalation of care discussed even if they declined (Discuss DNR or withdrawal of care, Hospice)? DNR status @ -No What co-morbidities impacted this encounter? (DM, HTN, Smoking, COPD, CAD, Cancer, CVA, ARF, Chemo, Hep., AIDS, mental health diagnosis, sleep apnea, mo rbid obesity)? @ -etoh abuse Was patient admitted / discharged? Hospital course, mention meds given and route, prescriptions, significant lab abnormalities, going to OR and other pertinent info. @ -Upon arrival patient was placed in room 26. Thorough history and physical exam was performed. IV access was established. Laboratory studies were conducted. Patient's ammonia is within normal limits. I did discuss results with the patient. He is in A. fib. We attempted to ambulate the patient and his heart rate does increase to the 160s. Because of this I did initiate the patient on Cardizem. Spoke with Dr. Vasquez who will admit the patient for A. fib with RVR Undiagnosed new problem with uncertain prognosis? @ -No Drug Therapy requiring intensive monitoring for toxicity (Heparin, Nitro, Insulin, Cardizem)? @ -No Were any procedures done? @ -No Diagnosis/symptom? @ -A. fib with RVR Acute, or Chronic, or Acute on Chronic? @ -acute on chronic Uncomplicated (without systemic symptoms) or Complicated (systemic symptoms)? @ -complicated Side effects of treatment? @ -No Exacerbation, Progression, or Severe Exacerbation? @ -yes Poses a threat to life or bodily function? How? (Chest pain, USA, RI, pneumonia, PE, COPD, DKA, ARF, appy, cholecystitis, CVA, Diverticulitis, Homicidal, Suicidal, threat to staff... and all critical care pts) @ -No - Lab Data Result diagrams: 02/20/23 06:40 02/20/23 06:40 Lab Results 02/19/23 02/19/23 02/19/23 Range/Units 09:11 09:11 09:11 WBC 6.8 (3.8-10.6) k/uL RBC 4.38 (4.30-5.90) m/uL Hgb 15.2 (13.0-17.5) gm/dL Hct 44.8 (39.0-53.0) % MCV 102.3 H (80.0-100.0) fL MCH 34.6 (25.0-35.0) pg MCHC 33.8 (31.0-37.0) g/dL RDW 13.6 (11.5-15.5) % Plt Count 148 L (150-450) k/uL MPV 7.3 Neutrophils % 79 % Lymphocytes % 10 % Monocytes % 7 % Eosinophils % 2 % Basophils % 1 % Neutrophils # 5.3 (1.3-7.7) k/uL Lymphocytes # 0.7 L (1.0-4.8) k/uL Monocytes # 0.5 (0-1.0) k/uL Eosinophils # 0.2 (0-0.7) k/uL Basophils # 0.0 (0-0.2) k/uL Macrocytosis Slight PT 12.9 H (10.0-12.5) sec INR 1.2 H (<1.2) APTT 28.1 (22.0-30.0) sec Sodium (137-145) mmol/L Potassium (3.5-5.1) mmol/L Chloride (98-107) mmol/L Carbon Dioxide (22-30) mmol/L Anion Gap mmol/L BUN (9-20) mg/dL Creatinine (0.66-1.25) mg/dL Est GFR (CKD-EPI)AfAm (>60 ml/min/1.73 sqM) Est GFR (CKD-EPI)NonAf (>60 ml/min/1.73 sqM) Glucose (74-99) mg/dL Lactic Ac Sepsis Rflx Plasma Lactic Acid Dirk (0.7-2.0) mmol/L Calcium (8.4-10.2) mg/dL Magnesium (1.6-2.3) mg/dL Total Bilirubin (0.2-1.3) mg/dL AST (17-59) U/L ALT (4-49) U/L Alkaline Phosphatase (38-126) U/L Ammonia (<30) umol/L Troponin I (0.000-0.034) ng/mL NT-Pro-B Natriuret Pep pg/mL Total Protein (6.3-8.2) g/dL Albumin (3.5-5.0) g/dL Urine Color Yellow Urine Appearance Clear (Clear) Urine pH 5.5 (5.0-8.0) Ur Specific [place] 1.010 (1.001-1.035) Urine Protein Negative (Negative) Urine Glucose (UA) Negative (Negative) Urine Ketones Negative (Negative) Urine Blood Negative (Negative) Urine Nitrite Negative (Negative) Urine Bilirubin Negative (Negative) Urine Urobilinogen <2.0 (<2.0) mg/dL Ur Leukocyte Esterase Negative (Negative) Influenza Type A (PCR) (Not Detectd) Influenza Type B (PCR) (Not Detectd) RSV (PCR) (Not Detectd) SARS-CoV-2 (PCR) (Not Detectd) 02/19/23 02/19/23 02/19/23 Range/Units 09:11 09:11 09:11 WBC (3.8-10.6) k/uL RBC (4.30-5.90) m/uL Hgb (13.0-17.5) gm/dL Hct (39.0-53.0) % MCV (80.0-100.0) fL MCH (25.0-35.0) pg MCHC (31.0-37.0) g/dL RDW (11.5-15.5) % Plt Count (150-450) k/uL MPV Neutrophils % % Lymphocytes % % Monocytes % % Eosinophils % % Basophils % % Neutrophils # (1.3-7.7) k/uL Lymphocytes # (1.0-4.8) k/uL Monocytes # (0-1.0) k/uL Eosinophils # (0-0.7) k/uL Basophils # (0-0.2) k/uL Macrocytosis PT (10.0-12.5) sec INR (<1.2) APTT (22.0-30.0) sec Sodium 141 (137-145) mmol/L Potassium 3.7 (3.5-5.1) mmol/L Chloride 110 H (98-107) mmol/L Carbon Dioxide 19 L (22-30) mmol/L Anion Gap 12 mmol/L BUN 3 L (9-20) mg/dL Creatinine 0.65 L (0.66-1.25) mg/dL Est GFR (CKD-EPI)AfAm >90 (>60 ml/min/1.73 sqM) Est GFR (CKD-EPI)NonAf >90 (>60 ml/min/1.73 sqM) Glucose 87 (74-99) mg/dL Lactic Ac Sepsis Rflx Plasma Lactic Acid Dirk 3.1 H* (0.7-2.0) mmol/L Calcium 8.5 (8.4-10.2) mg/dL Magnesium 1.6 (1.6-2.3) mg/dL Total Bilirubin 1.6 H (0.2-1.3) mg/dL AST 35 (17-59) U/L ALT 17 (4-49) U/L Alkaline Phosphatase 122 (38-126) U/L Ammonia 15 (<30) umol/L Troponin I <0.012 (0.000-0.034) ng/mL NT-Pro-B Natriuret Pep 705 pg/mL Total Protein 6.6 (6.3-8.2) g/dL Albumin 3.3 L (3.5-5.0) g/dL Urine Color Urine Appearance (Clear) Urine pH (5.0-8.0) Ur Specific [place] (1.001-1.035) Urine Protein (Negative) Urine Glucose (UA) (Negative) Urine Ketones (Negative) Urine Blood (Negative) Urine Nitrite (Negative) Urine Bilirubin (Negative) Urine Urobilinogen (<2.0) mg/dL Ur Leukocyte Esterase (Negative) Influenza Type A (PCR) (Not Detectd) Influenza Type B (PCR) (Not Detectd) RSV (PCR) (Not Detectd) SARS-CoV-2 (PCR) (Not Detectd) 02/19/23 02/19/23 Range/Units 09:11 10:22 WBC (3.8-10.6) k/uL RBC (4.30-5.90) m/uL Hgb (13.0-17.5) gm/dL Hct (39.0-53.0) % MCV (80.0-100.0) fL MCH (25.0-35.0) pg MCHC (31.0-37.0) g/dL RDW (11.5-15.5) % Plt Count (150-450) k/uL MPV Neutrophils % % Lymphocytes % % Monocytes % % Eosinophils % % Basophils % % Neutrophils # (1.3-7.7) k/uL Lymphocytes # (1.0-4.8) k/uL Monocytes # (0-1.0) k/uL Eosinophils # (0-0.7) k/uL Basophils # (0-0.2) k/uL Macrocytosis PT (10.0-12.5) sec INR (<1.2) APTT (22.0-30.0) sec Sodium (137-145) mmol/L Potassium (3.5-5.1) mmol/L Chloride (98-107) mmol/L Carbon Dioxide (22-30) mmol/L Anion Gap mmol/L BUN (9-20) mg/dL Creatinine (0.66-1.25) mg/dL Est GFR (CKD-EPI)AfAm (>60 ml/min/1.73 sqM) Est GFR (CKD-EPI)NonAf (>60 ml/min/1.73 sqM) Glucose (74-99) mg/dL Lactic Ac Sepsis Rflx Y Plasma Lactic Acid Dirk (0.7-2.0) mmol/L Calcium (8.4-10.2) mg/dL Magnesium (1.6-2.3) mg/dL Total Bilirubin (0.2-1.3) mg/dL AST (17-59) U/L ALT (4-49) U/L Alkaline Phosphatase (38-126) U/L Ammonia (<30) umol/L Troponin I (0.000-0.034) ng/mL NT-Pro-B Natriuret Pep pg/mL Total Protein (6.3-8.2) g/dL Albumin (3.5-5.0) g/dL Urine Color Urine Appearance (Clear) Urine pH (5.0-8.0) Ur Specific [place] (1.001-1.035) Urine Protein (Negative) Urine Glucose (UA) (Negative) Urine Ketones (Negative) Urine Blood (Negative) Urine Nitrite (Negative) Urine Bilirubin (Negative) Urine Urobilinogen (<2.0) mg/dL Ur Leukocyte Esterase (Negative) Influenza Type A (PCR) Not Detected (Not Detectd) Influenza Type B (PCR) Not Detected (Not Detectd) RSV (PCR) Not Detected (Not Detectd) SARS-CoV-2 (PCR) Not Detected (Not Detectd) Disposition Clinical Impression: Atrial fibrillation with RVR Disposition: ADMITTED IP TO THIS [facility] Condition: Stable Is patient prescribed a controlled substance at d/c from ED?: No Time of Disposition: 13:06 Decision to Admit Reason: Admit from EC Decision Date: 02/19/23 Decision Time: 13:06
[2023-02-19] MEDS ORDERED: TRIAMCINOLONE ACET 0.1% OINTMENT 15 GM TUBE TOPICAL PRN (20:42)
[2023-02-19] MEDS ORDERED: HYDROCORTISONE 1% CREAM 30 GM TUBE TOPICAL PRN (20:42)
[2023-02-19] MEDS ORDERED: traZODone HCL 100 MG TAB PO SCH (21:00)
[2023-02-19] MEDS: HYDROcodone/APAP 7.5-325MG 1 EACH TAB PO PRN (21:08)
--- NOTE | 2023-02-19 21:49 | HP ---
HISTORY AND PHYSICAL CHIEF COMPLAINT: Nausea, vomiting, and diarrhea with rapid heart rate. HISTORY OF PRESENT ILLNESS: This is another admission for this 72-year-old male. In the past, he noticed palpitations and was identified as having PACs. He is referred to Cardiology and they put him on a beta armida, but he stopped taking it because of side effects. He came to the emergency room today where he was in atrial fibrillation with a ventricular response rate running anywhere from 120-180 beats per minute. He denied chest pain. He has also had nausea, vomiting, or diarrhea with no hematemesis or melena/hematochezia. He is not having chest pain or shortness of breath. REVIEW OF SYSTEMS: Otherwise unremarkable, noncontributory, or unchanged. PHYSICAL EXAMINATION: HEART: Heart rate is running around 130 beats per minute and is irregularly irregular. Cardiac exam demonstrates tachycardia. HEENT: Head, ears, eyes, nose, mouth and throat are normal. CHEST: Clear. ABDOMEN: Soft, nontender. EXTREMITIES: Normal. NEUROLOGICAL: He is intact. HOSPITAL DIAGNOSES: 1. Atrial fibrillation with rapid ventricular response. 2. Viral gastroenteritis. 3. Dehydration. 4. History of alcoholism. PLAN: 1. Bedrest. 2. IV fluids. 3. Antiemetics. 4. Cardiology consult to convert back to sinus rhythm, if possible. MMODL / JASN: [id number] /
[2023-02-20] MEDS ORDERED: LORazepam 0.5 MG TAB PO PRN (01:27)
[2023-02-20] MEDS ORDERED: LORazepam 1 MG TAB PO PRN ×3 (01:27)
[2023-02-20] MEDS: HYDROcodone/APAP 7.5-325MG 1 EACH TAB PO PRN ×2 (08:47→14:02)
[2023-02-20] MEDS ORDERED: CALCIUM CARBONATE 500 MG CHEWABLE PO SCH (09:00)
[2023-02-20] MEDS ORDERED: NON FORMULARY DRUG (Vitamin B Complex [Vitamin B Complex] 1 EACH Capsule) PO SCH (09:00)
--- NOTE | 2023-02-20 09:34 | P.CRDCN ---
History of Present Illness History of present illness: HISTORY OF PRESENTING ILLNESS Patient is a pleasant 72-year-old male with history of liver cirrhosis status post prior TIPS procedure, prior alcohol use, atrial fibrillation who presents secondary to feeling nauseous and jittery. Patient states he has run out of his trazodone and has missed a few doses and believes part of this may be related to withdrawal symptoms. He denies any chest pain or pressure or significant shortness breath. He did have some low-grade chills however no fevers. No cough or diarrhea. He did receive trazodone last night and is feeling somewhat better. His found to be in A. fib with RVR with heart rates in the 120s to 130s and was placed on a Cardizem drip briefly however converted overnight to normal sinus rhythm with heart rates in the 60s 80s. Currently he states he feels back to his normal self. He states normally he does not have much jittery or palpitation issues. Has never had a stroke, TIA, diabetes mellitus, CAD or heart failure. REVIEW OF SYSTEMS At the time of my exam: CONSTITUTIONAL: Denies fever or chills. CARDIOVASCULAR: Denies chest pain, shortness of breath, orthopnea, PND or palpitations. RESPIRATORY: Denies cough. GASTROINTESTINAL: Denies abdominal pain, diarrhea, constipation, nausea or vomiting. MUSCULOSKELETAL: Denies myalgias. NEUROLOGIC: Denies numbness, tingling or weakness. ENDOCRINE: Denies fatigue, weight change, polydipsia or polyurina. GENITOURINARY: Denies burning, hematuria or urgency with micturation. HEMATOLOGIC: Denies history of anemia or bleeding. PHYSICAL EXAMINATION Vital signs reviewed. CONSTITUTIONAL: No apparent distress. HEENT: Head is normocephalic. Pupils are equal, round. Sclerae anicteric. Mucous membranes of the mouth are moist. No JVD. No carotid bruit. CHEST EXAMINATION: Lungs are clear to auscultation. No chest wall tenderness is noted on palpation or with deep breathing. HEART EXAMINATION: Regular rate and rhythm. S1, S2 heard. No murmurs, gallops or rub. ABDOMEN: Soft, nontender. Positive bowel sounds. EXTREMITIES: 2+ peripheral pulses, no lower extremity edema and no calf tenderness. NEUROLOGIC EXAMINATION: Patient is awake, alert and oriented x3. ASSESSMENT 1. Paroxysmal atrial fibrillation, RVR on presentation, currently sinus rhythm 2. Episodes of nausea, jittery feeling. Questionably trazodone withdrawal symptoms versus symptomatic A. fib 3. Liver cirrhosis status post TIPS 4. Previous alcohol abuse PLAN Patient currently back in sinus rhythm. He did have some lactic acidosis of unclear etiology. He did have low-grade chills however no obvious infectious etiology. Some of his symptoms may be related to trazodone withdrawal however if he continues to have symptoms we discussed wearing a longer event monitor to evaluate A. fib burden. At this time we will start Cardizem for rate control and monitor response. He believes he was on metoprolol previously. No anticoagulation given chads VASC score of 1. We will repeat echo for compl eteness sake however similar presentation in July 2021 with echo showing preserved EF. Patient may be discharged home from a cardiology standpoint with outpatient follow-up. Past Medical History Past Medical History: Atrial Fibrillation, Coronary Artery Disease (CAD), COPD, Diabetes Mellitus, Hypertension, Liver Disease, Osteoarthritis (OA) Additional Past Medical History / Comment(s): irregular heart beat hx, alcoholic cirrhosis, transjugular intrahepatic portosystemic shunt (TIPS), SBO, hydrocele, BPH, History of Any Multi-Drug Resistant Organisms: None Reported Past Surgical History: Hernia Repair, Orthopedic Surgery, Tonsillectomy Additional Past Surgical History / Comment(s): multiple paracentesis,left hip fractures repair, right 2 and 3 digit repair Past Anesthesia/Blood Transfusion Reactions: No Reported Reaction Past Psychological History: Anxiety, Depression Smoking Status: Former smoker Past Alcohol Use History: Heavy Additional Past Alcohol Use History / Comment(s): Quit smoking - Nov 2019, Past Drug Use History: Marijuana Additional Drug Use History / Comment(s): pain management - Past Family History Father Family Medical History: No Reported History Sister(s) Family Medical History: Diabetes Mellitus Brother(s) Family Medical History: CVA/TIA, Diabetes Mellitus Medications and Allergies Home Medications Medication Instructions Recorded Confirmed Type traZODone HCL 100 mg PO HS 06/06/20 02/19/23 History Calcium Carbonate [Calcium] 600 mg PO DAILY 02/19/23 02/19/23 History HYDROcodone/APAP 7.5-325MG [[place] 1 tab PO Q4H PRN 02/19/23 02/19/23 History 7.5-325] Hydrocortisone Cream 1 applic TOPICAL BID PRN 02/19/23 02/19/23 History [Hydrocortisone 2.5% Cream] Triamcinolone 0.1% Ointment 1 applic TOPICAL BID PRN 02/19/23 02/19/23 History [Kenalog 0.1% Ointment] Vitamin B Complex 1 cap PO DAILY 02/19/23 02/19/23 History Allergies Allergy/AdvReac Type Severity Reaction Status Date / Time No Known Allergies Allergy Verified 02/19/23 11:47 Physical Exam Vitals: Vital Signs Temp Pulse Pulse Resp BP BP Pulse Ox 02/20/23 08:35 16 02/20/23 07:00 97.8 F 71 18 110/68 97 02/20/23 01:20 97.9 F 91 16 139/77 95 02/19/23 20:29 98.5 F 98 16 150/83 97 02/19/23 19:38 98.7 F 100 16 118/101 97 02/19/23 19:00 86 20 02/19/23 17:00 88 14 118/74 02/19/23 16:00 90 13 115/78 02/19/23 15:00 92 12 119/82 02/19/23 14:00 80 16 115/85 02/19/23 13:00 123 H 125/101 02/19/23 12:00 114 H 18 140/86 02/19/23 11:00 104 H 22 135/94 02/19/23 10:00 101 H 19 124/93 Intake and Output 02/19/23 02/20/23 02/20/23 22:59 06:59 14:59 Other: Voiding Method Toilet # Voids 1 2 Weight 58.967 kg Results 02/19/23 09:11 02/19/23 09:11 Cardiac Enzymes 02/19/23 02/19/23 Range/Units 09:11 09:11 AST 35 (17-59) U/L Troponin I <0.012 (0.000-0.034) ng/mL Coagulation 02/19/23 Range/Units 09:11 PT 12.9 H (10.0-12.5) sec APTT 28.1 (22.0-30.0) sec CBC 02/19/23 Range/Units 09:11 WBC 6.8 (3.8-10.6) k/uL RBC 4.38 (4.30-5.90) m/uL Hgb 15.2 (13.0-17.5) gm/dL Hct 44.8 (39.0-53.0) % Plt Count 148 L (150-450) k/uL Comprehensive Metabolic Panel 02/19/23 Range/Units 09:11 Sodium 141 (137-145) mmol/L Potassium 3.7 (3.5-5.1) mmol/L Chloride 110 H (98-107) mmol/L Carbon Dioxide 19 L (22-30) mmol/L BUN 3 L (9-20) mg/dL Creatinine 0.65 L (0.66-1.25) mg/dL Glucose 87 (74-99) mg/dL Calcium 8.5 (8.4-10.2) mg/dL AST 35 (17-59) U/L ALT 17 (4-49) U/L Alkaline Phosphatase 122 (38-126) U/L Total Protein 6.6 (6.3-8.2) g/dL Albumin 3.3 L (3.5-5.0) g/dL Current Medications Generic Name Dose Route Start Last Admin Trade Name Freq PRN Reason Stop Dose Admin Hydrocodone Bitart/Acetaminophen 1 each 02/19/23 20:42 02/20/23 08:47 Hydrocodone/Apap 7.5-325mg 1 Each Tab PO 1 each Q4H PRN Administration Pain Calcium Carbonate/Glycine 500 mg 02/20/23 09:00 02/20/23 08:47 Calcium Carbonate 500 Mg Chewable PO 500 mg DAILY JUDITH Administration Hydrocortisone 1 applic 02/19/23 20:42 Hydrocortisone 1% Cream 30 Gm Tube TOPICAL BID PRN Dry Skin Lorazepam 0.5 mg 02/20/23 01:27 Lorazepam 0.5 Mg Tab PO Q4HR PRN [place] 4 To 5 Lorazepam 1 mg 02/20/23 01:27 Lorazepam 1 Mg Tab PO Q4HR PRN [place] 6 To 7 Lorazepam 2 mg 02/20/23 01:27 Lorazepam 1 Mg Tab PO Q2HR PRN [place] 10 or greater Lorazepam 2 mg 02/20/23 01:27 Lorazepam 1 Mg Tab PO Q3HR PRN [place] 8 To 9 Naloxone HCl 0.2 mg 02/19/23 13:06 Naloxone 0.4 Mg/Ml 1 Ml Vial IV Q2M PRN Opioid Reversal Trazodone HCl 100 mg 02/19/23 21:00 02/19/23 21:08 Trazodone Hcl 100 Mg Tab PO 100 mg HS JUDITH Administration Triamcinolone Acetonide 1 applic 02/19/23 20:42 Triamcinolone Acet 0.1% Ointment 15 Gm Tube TOPICAL BID PRN Dry Skin Protocol Intake and Output 02/19/23 02/20/23 02/20/23 22:59 06:59 14:59 Other: Voiding Method Toilet # Voids 1 2 Weight 58.967 kg 02/19/23 09:11 02/19/23 09:11
[2023-02-20 11:09] LABS: BUN/Creat Ratio 9.75 Ratio (12.00-20.00); Blood Urea Nitrogen 7.8 mg/dL (9.0-27.0); Calcium 8.5 mg/dL (8.7-10.3); Carbon Dioxide 21.4 mmol/L (21.6-31.8); Chloride 105 mmol/L (96-109); Glucose 79 mg/dL (70-110); Potassium 3.9 mmol/L (3.5-5.5); Sodium 136 mmol/L (135-145)
[2023-02-20 11:31] LABS: Basophils # (A) 0.02 X 10*3/uL (0.00-0.10); Basophils % (A) 0.5 %; Eosinophils # (A) 0.07 X 10*3/uL (0.04-0.35); Eosinophils % (A) 1.6 %; HCT 32.9 % (39.6-50.0); HGB 11.2 g/dL (13.0-17.0); Lymphocytes # (A) 0.92 X 10*3/uL (0.90-5.00); MCH 34.7 pg (27.0-32.0); MCV 101.9 FL (80.0-97.0); Mean Platelet Volume 10.1 FL (9.5-12.2); Monocytes # (A) 0.67 X 10*3/uL (0.20-1.00); Monocytes % (A) 15.3 %; NRBC Per 100 WBC 0 X 10*3/uL (0.00-0.01); Neutrophils % (A) 61.4 %; Platelet Count 87 X 10*3/uL (140-440); RBC 3.23 X 10*6/uL (4.40-5.60); RBC Morphology Normal (Normal); RDW 14.1 % (11.5-14.5); WBC 4.39 X 10*3/uL (4.50-10.00)
[2023-02-20 15:33] VITALS: BP 100/60; PULSE 93; RESP 20; TEMP 97.5
--- NOTE | 2023-02-21 02:31 | HP ---
HISTORY AND PHYSICAL CHIEF COMPLAINT: Shortness of breath and rapid heart beating. HISTORY OF PRESENT ILLNESS: This is another admission for this 72-year-old white male, alcoholic. He came to the emergency room with rapid heartbeat, and was found to have a heart rate of around 130 beats per minute. Previous EKG demonstrated atrial fibrillation. He is a long- standing alcoholic with cirrhosis and has actually had a TIPS procedure. REVIEW OF SYSTEMS: He denies any syncope, headache, chest pain, cough, hemoptysis, murmurs, rheumatic fever, history of heart disease, abdominal pain, nausea, vomiting, melena, hematochezia, etc. His renal function has been normal. He has no incontinence or nocturia. Past medical history, family history and personal and social histories were otherwise , 1. Vicodin. 2. Ketorolac. SOCIAL HISTORY: He does continue to smoke and drink. PHYSICAL EXAMINATION: VITAL SIGNS: Blood pressure 118/78 with a pulse of 135, respirations were 32, and he is afebrile. GENERAL: He appears to be somewhat disheveled and older than his stated age. HEENT: Head, ears, eyes, nose, mouth and throat were normal. CHEST: Clear. He has increased AP diameter and there are scattered rales. CARDIAC: Demonstrated tachycardia. ABDOMEN: Soft, nontender. EXTREMITIES: Normal. DIAGNOSES: He is admitted to the hospital with diagnoses: 1. New-onset atrial fibrillation with RVR. 2. Alcoholism. PLAN: 1. Bedrest. 2. IV fluids. 3. Cardioversion with calcium channel blockers. 4. Consult Cardiology. MMODL / IJN: [id number] /
--- NOTE | 2023-02-21 04:07 | DS ---
DISCHARGE SUMMARY CHIEF COMPLAINT: Atrial fibrillation with rapid ventricular response. HISTORY OF PRESENT ILLNESS AND PHYSICAL EXAMINATION: Details of this man's history and physical can be found in the initial workup. COURSE IN HOSPITAL: After admission, he was placed on bedrest on intravenous fluids and he converted to normal sinus rhythm. He was seen by Cardiology. They felt that there was nothing further that they could offer and then he could go home. He will be sent home on calcium channel armida. FINAL DIAGNOSES: 1. New-onset atrial fibrillation with rapid ventricular response. 2. Chronic alcoholism. 3. Cirrhosis. OPERATIONS: None. CONSULTATIONS: Cardiology, he is improved. MMODL / IJN: [id number] /
[2023-02-21] MEDS ORDERED: DILTIAZEM CD 180 MG CAP.ER.24H PO SCH (09:00)
--- NOTE | 2023-02-21 10:06 | CA ---
Transthoracic Echo Report Name: Chaparro Mota Age: 72 Gender: M : 1950 Exam Date: 02/20/2023 14:14 Exam Location: [facility] Ht (in): 68 Wt (lb): 130 Ordering Physician: Live Calle DO ([email or web address]) Attending/Referring Phys: Artist Color Separation Susan Miller RDCS Procedure CPT: Indications: re: Afib Cardiac Hx: Technical Quality: Fair, Technically difficult study Contrast 1: Definity Total Dose (mL): 2 Contrast 2: Total Dose (mL): MEASUREMENTS (Male / Female) Normal Values 2D ECHO LV Diastolic Diameter PLAX 3.8 cm 4.2 - 5.9 / 3.9 - 5.3 cm LV Systolic Diameter PLAX 2.6 cm IVS Diastolic Thickness 1.2 cm 0.6 - 1.0 / 0.6 - 0.9 cm LVPW Diastolic Thickness 1.2 cm 0.6 - 1.0 / 0.6 - 0.9 cm LV Relative Wall Thickness 0.6 LA Volume 35.6 cm??? 18 - 58 / 22 - 52 cm??? LA Volume Index 21.2 cm???/m??? 16 - 28 cm???/m??? DOPPLER AV Peak Velocity 104.6 cm/s AV Peak Gradient 4.4 mmHg AV Mean Velocity 58.4 cm/s AV Mean Gradient 1.7 mmHg AV Velocity Time Integral 14.7 cm LVOT Peak Velocity 108.4 cm/s LVOT Peak Gradient 4.7 mmHg LVOT Velocity Time Integral 22.9 cm MV Area PHT 3.4 cm??? Mitral E Point Velocity 97.0 cm/s Mitral A Point Velocity 81.5 cm/s Mitral E to A Ratio 1.2 MV Deceleration Time 226.2 ms MV E' Velocity 7.5 cm/s Mitral E to MV E' Ratio 13.0 TR Peak Velocity 128.5 cm/s TR Peak Gradient 6.6 mmHg Right Ventricular Systolic Press 11.6 mmHg FINDINGS Left Ventricle Mildly increased left ventricular wall thickness. Left ventricular cavity size normal. Normal left ventricular systolic function with no obvious regional wall motion abnormalities. Left ventricular ejection fraction is estimated at 55 %. Right Ventricle Normal right ventricular size and function. Right ventricular systolic pressure within normal limits. Right Atrium Normal right atrial size. Left Atrium Normal left atrial size. Mitral Valve Structurally normal mitral valve. Mild mitral regurgitation. Aortic Valve No aortic valve stenosis or regurgitation. Tricuspid Valve Structurally normal tricuspid valve. Mild tricuspid regurgitation. Pulmonic Valve Structurally normal pulmonic valve. Pericardium No pericardial effusion. Aorta Normal size aortic root and proximal ascending aorta. CONCLUSIONS Left ventricular ejection fraction 55% Mildly increased left ventricular wall thickness RVSP 11 Mild mitral regurgitation Mild tricuspid regurgitation Previewed by: Dr. Live Calle DO (Electronically Signed) Final Date: 21 February 2023 10:05
== END 2023-02-20 18:34 | disposition home or self-care (01) ==
LOC: EC 06:58 → 6NMEDSUR 13:07
PROVIDERS: ADMIT Family Medicine; ATTEND Family Medicine
DX: R53.1 Weakness (principal); I48.0 Paroxysmal atrial fibrillation; I49.3 Ventricular premature depolarization; F10.20 Alcohol dependence, uncomplicated; E87.1 Hypo-osmolality and hyponatremia; F17.200 Nicotine dependence, unspecified, uncomplicated; I10 Essential (primary) hypertension; I25.10 Atherosclerotic heart disease of native coronary artery without angina pectoris; K70.30 Alcoholic cirrhosis of liver without ascites; Z83.3 Family history of diabetes mellitus; E86.0 Dehydration; K52.9 Noninfective gastroenteritis and colitis, unspecified; K59.00 Constipation, unspecified; E11.9 Type 2 diabetes mellitus without complications
CPT/HCPCS: 82075; 96374; 96375; 99285; 36415; 93005; 93306; 83880; 80053; 80048; 82140; 83605; 83735; 84484; 85025 ×2; 85610; 85730; 81003; 87636; 71046; G0378 ×2; J2060; J2405; Q9957

== ENCOUNTER 2023-04-25 14:56 | Day surgery (SDC) | payer MEDICARE ==
[2023-04-25] MEDS: SODIUM CHLORIDE 0.9% 1,000 ML IV SCH (15:43)
[2023-04-25 16:12] LABS: Basophils % (A) 1 %; Eosinophils # (A) 0.1 k/uL (0-0.7); Eosinophils % (A) 1 %; HCT 48.2 % (39.0-53.0); HGB 16.1 gm/dL (13.0-17.5); Lymphocytes # (A) 0.7 k/uL (1.0-4.8); Lymphocytes % (A) 10 %; MCH 33.4 pg (25.0-35.0); MCHC 33.4 g/dL (31.0-37.0); MCV 99.8 fL (80.0-100.0); Macrocytosis Slight; Mean Platelet Volume 7.7; Monocytes # (A) 0.6 k/uL (0-1.0); Monocytes % (A) 8 %; Neutrophils # (A) 5.9 k/uL (1.3-7.7); Neutrophils % (A) 80 %; Platelet Count 157 k/uL (150-450); RBC 4.83 m/uL (4.30-5.90); RDW 14.3 % (11.5-15.5); WBC 7.4 k/uL (3.8-10.6)
[2023-04-25 17:20] LABS: African American GFR (CKD) >90 (>60 ml/min/1.73 sqM); Anion Gap 8 mmol/L; Blood Urea Nitrogen 6 mg/dL (9-20); Calcium 8.7 mg/dL (8.4-10.2); Carbon Dioxide 21 mmol/L (22-30); Chloride 109 mmol/L (98-107); Glucose 110 mg/dL (74-99); Non-African American GFR(CKD) >90 (>60 ml/min/1.73 sqM); Potassium 3.4 mmol/L (3.5-5.1); Sodium 138 mmol/L (137-145)
[2023-04-25] MEDS: IOPAMIDOL-370 100ML BTL INJ ONE (19:04)
[2023-04-25] MEDS ORDERED: LIDOCAINE 1% INJ 10MG/ML (20 ML MDV) ONE ×3 (19:08→19:27)
[2023-04-25] MEDS: ceFAZolin 1 GM in SODIUM CHLORIDE 0.9% IRRIG BTL 250 ML IRRIGATION PRN (19:14)
[2023-04-25] MEDS: SODIUM CHLORIDE 0.9% 1,000 ML IV ONE (19:14)
[2023-04-25] MEDS: SODIUM CHLORIDE 0.9% 500 ML 500 ML IV ONE (19:14)
[2023-04-25] MEDS: MIDAZOLAM 2 MG/2 ML VIAL IVP ONE (19:14)
[2023-04-25] MEDS ORDERED: fentaNYL (PF) 50 MCG/ML 2 ML AMP ONE (19:16)
[2023-04-25] MEDS: LIDOCAINE 1% INJ 10MG/ML (20 ML MDV) SQ ONE (19:17)
[2023-04-25] MEDS: fentaNYL (PF) 50 MCG/ML 2 ML AMP IVP ONE (19:21)
--- NOTE | 2023-04-25 20:15 | P.EPPROC ---
- EP Procedure Note Electrophysiology Procedure Note: Patient underwent EP procedure under conscious sedation/moderate sedation, monitoring of the level of consciousness and physiologic parameters including but not limited to vital signs and oxygenation. Patient tolerated the procedure well without any acute complications. 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
[2023-04-25] MEDS ORDERED: ACETAMINOPHEN TAB 325 MG TAB PO PRN (20:17)
--- NOTE | 2023-04-25 20:17 | P.EPPROC ---
- EP Procedure Note Electrophysiology Procedure Note: Diagnosis Symptomatic bradycardia secondary to long postconversion pauses Tachybradycardia syndrome Procedure Dual-chamber pacemaker implantation Details Patient was brought to the EP lab in a fasting state. Written informed consent was obtained prior to the procedure. Conscious sedation provided. IV antibiotics administered. Local anesthesia administered. A 4 cm incision made in the pectoral area. Subfascial pocket made. Venous accesses obtained Venous sheaths placed. Leads placed in the right heart Atrial lead position the right atrial appendage. Myles tendril STS model #2088 TC 52 cm in length P waves greater than 5 mV, pacing threshold 0.5 V at point 5 ms apiece impedance of 730 ohms Active-fixation lead 10 V test negative RV lead position in the RV septum, mid Myles tendril STS 58 cm model #2088 TC R waves greater than 12 mV, pacing threshold 0.75 V at point 5 ms and pacing impedance 590 ohms 10 V test negative Active 6-lead Device msws: [place] Assurity MRI dual-chamber pacemaker Dual-chamber pacemaker device connected to the leads and placed in the subfascial pocket Antibiotic pouch placed Patient tolerated the procedure well without acute complications Pacemaker programming DDD 60 bpm MVP on Max tracking rate 120 ppm
--- NOTE | 2023-04-25 20:21 | P.PRLE ---
RE: Chaparro Mota Dear Dr. Kathy Mayfiedl has symptomatic tachybradycardia syndrome with very long postconversion pauses following termination of atrial fibrillation He underwent dual-chamber pacemaker implantation today without any acute complications He will continue to see you in Dr. Lester as before and will continue his cardiac medications Thank you for entrusting me with the care of the patient Warm regards Sincerely Dino Stanford
[2023-04-25] MEDS: traZODone HCL 100 MG TAB PO SCH (23:29)
--- NOTE | 2023-04-26 05:50 | XR ---
EXAMINATION TYPE: XR chest 2V DATE OF EXAM: 04/26/2023 COMPARISON: Chest x-ray February 19, 2023 HISTORY: Elevated heart rate TECHNIQUE: 2 lateral views of the chest are obtained. FINDINGS: There is new dual lead pacemaker with leads projecting anterior and posterior in the heart. Suboptimal due to overlying clothing and/or blanket. IMPRESSION: As above.
[2023-04-26] MEDS: ACETAMINOPHEN IV (For NPO) 1,000 MG in EMPTY BAG 1 BAG IVPB ONE (06:10)
[2023-04-26] MEDS ORDERED: ceFAZolin 1 GM in SODIUM CHLORIDE 0.9% IRRIG BTL 250 ML IRRIGATION PRN (07:00)
[2023-04-26 08:14] VITALS: BP 140/80; PULSE 81; RESP 18; TEMP 97.6
[2023-04-26] MEDS: METOPROLOL SUCCINATE (ER) 25 MG TAB.ER.24H PO SCH (08:25)
[2023-04-26] MEDS: DILTIAZEM CD 180 MG CAP.ER.24H PO SCH (08:25)
--- NOTE | 2023-04-26 08:35 | DS ---
DISCHARGE SUMMARY PROCEDURES PERFORMED: Dual-chamber permanent pacemaker placement with a [employer] device. HOSPITAL COURSE: This is a 73-year-old gentleman who underwent a dual-chamber permanent pacemaker placement by Dr. Stanford yesterday. His postprocedure course is fairly uncomplicated. He is free of any symptoms. Remains in sinus rhythm. The patient has had wide-complex tachycardia through last night and the rhythm strips have been transmitted to Dr. Stanford who told me this morning that these are not episodes of wide-complex tachycardia, but is paced rhythm. Chest x-ray this morning does not show any evidence of pneumothorax and patient is ready to go home. His pacemaker will be checked this morning by the device rep who is going to talk to Dr. Stanford about it and once he okays it, the patient will go home. PHYSICAL EXAMINATION: GENERAL: He is comfortable at rest. VITAL SIGNS: Stable. NECK: There is no jugular venous distention. CHEST: Reveals good air entry bilaterally. HEART: Reveals first and second heart sounds. No gallop, no murmur, no rub. ABDOMEN: Soft. EXTREMITIES: Did not reveal any edema. Peripheral pulses are felt. Device site appears free of hematoma or bleeding. MEDICATIONS: Currently include, 1. Cardizem CD 180 daily. 2. Along with [place]. 3. Hydrocortisone. 4. Triamcinolone. 5. Trazodone. 6. I am adding Toprol-XL 25 mg daily. FOLLOWUP: The patient will be followed up by Dr. Lester in the office. MMODL / IJN: [id number] /
--- NOTE | 2023-04-27 12:02 | CONS ---
CONSULTATION CHIEF COMPLAINT: Atrial fibrillation with bradycardia. HISTORY OF PRESENT ILLNESS: This patient has been admitted for a pacemaker implantation. He has atrial fibrillation with episodes of bradycardia. 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 REVIEW OF SYSTEMS: He has had no headaches, chest pain, orthopnea, PND, abdominal pain, nausea, vomiting, melena, hematochezia, jaundice, renal disease, dysuria, frequency, or hematuria. ALLERGIES: He is not allergic to anything. CURRENT MEDICATIONS: Diltiazem 180 mg once a day and trazodone for sleep. The remainder of his history is unremarkable. He did have an old injury to the left lower leg. He does continue to smoke. PHYSICAL EXAMINATION: VITAL SIGNS: Normal. HEAD, EARS, EYES, NOSE, MOUTH, AND THROAT: Normal. CHEST: Clear. CARDIAC: Demonstrated an irregularly irregular rhythm. ABDOMEN: Soft and nontender without any visceromegaly or masses. Bowel sounds present. EXTREMITIES: Normal. NEUROLOGICALLY: He is intact. DIAGNOSES: He is admitted to the hospital with diagnoses; 1. Atrial fibrillation. 2. Bradycardia. 3. Alcoholism. 4. Cirrhosis. RECOMMENDATIONS: None. Thank you respectfully, MMODL / IJN: [id number] /
== END 2023-04-26 11:45 | disposition home or self-care (01) ==
LOC: CATHEP 14:56 → 6NMEDSUR 20:14 → CATHEP 04-26 11:45
PROVIDERS: ATTEND Internal Medicine Clinical Cardiac Electrophysiology
DX: I48.91 Unspecified atrial fibrillation (principal); K74.60 Unspecified cirrhosis of liver; F10.90 Alcohol use, unspecified, uncomplicated; Z79.899 Other long term (current) drug therapy; Z95.0 Presence of cardiac pacemaker
CPT/HCPCS: 33208; 80048; 84443; 85025; 71046; C1769 ×2; C1892; C1898; C1785; J2250; J0690 ×2; J2001; J3010; Q9967